=== PATIENT | female | born 1980 | race Caucasian/White ===

== ENCOUNTER 2016-08-06 08:52 | Emergency (ER) | payer OTHER ==
--- NOTE | 2016-08-06 12:22 | DIAGNOSTIC IMAGING REPORT ---
PROCEDURE: CT ABD/PELVIS WITH CONTRAST CLINICAL INDICATION: Periumbilical pain, initial encounter TECHNIQUE: 125 ml of Isovue 300 were injected intravenously and axial images were obtained of the entire abdomen and pelvis with sagittal and coronal reformations. COMPARISON: CT abdomen/pelvis 04/06/2010 FINDINGS: ABDOMEN: Lung base are clear. Heart size is normal. Cholecystectomy. Liver, pancreas, spleen, adrenal glands, kidneys and abdominal aorta are normal. Mild prominence of the second portion of the duodenum. There is mild wall thickening of the ascending, transverse and descending colon, which appears to be due to decompression rather than colitis . PELVIS: Prominence of the appendix (7 mm diameter) but there is no wall hyperemia or definite inflammatory changes. Uterus, adnexa and bladder are unremarkable. No free fluid. Mild degenerative changes of the spine. IMPRESSION: 1. Appendix size at the upper limits of normal no definite acute appendicitis. Correlate clinically 2. Mild colonic wall thickening which appears to be due to decompression rather than colitis 3. Cholecystectomy 4. Results discussed with Dr. Fried All CT scans at this facility use dose modulation, iterative reconstruction, and/or weight-based dosing when appropriate to reduce radiation dose to as low as reasonably achievable.
--- NOTE | 2016-08-06 13:31 | ED ORDER SUMMARY ---
..... Patient: SANDRA CARUSO OrderSheet [facility] VisitID: [id number] [place] [address] 36y, F Registration Date/Time: 08/06/2016 ORDER SHEET Weight: 61.2 kg (stated) Allergies: No Known Drug Allergy GENERAL ORDERS: CBC w Diff Urgent (10:08/06/2016 Radha Garcia) (Ack 10:28 [facility] ER Tech1) (10:55 Tana R.N.) CMP Urgent (10:08/06/2016 Radha Garcia) (Ack 10:28 [facility] ER Tech1) (10:55 Tana R.N.) UA-Culture if indicated Urgent (10:08/06/2016 Radha Garcia) (Ack 10:28 [employer] ER Tech1) (10:55 Tana R.N.) Serum Quantitative Urgent (10:08/06/2016 Radha Garcia) (Ack 10:28 [employer] ER Tech1) (10:55 Tana R.N.) Pulse oximeter (10:08/06/2016 Radha Garcia) (10:45 [facility]) CT Abd/Pel w Cont (No) (N/A) Urgent (10:28 08/06/2016 Radha Garcia) (Ack 10:39 [facility] ER Tech1) (11:29 [facility] ER Tech1) Pelvic Exam Setup (10:08/06/2016 Radha Garcai) (11:51 [facility] ER Tech1) GC/Chlamydia (Cervix) (mucus, blood) Urgent (10:08/06/2016 Radha Garcia) (Ack 10:39 [facility] ER Tech1) (13:02 [facility] Tech1) Wet Prep (Cervix) (SWAB) Urgent (13:02 08/06/2016 [facility] ER Tech1 per protocol) (13:03 [facility] ER Tech1) MEDICATION ORDERS: Phenergan IV 25 mg (HIGH ALERT MEDICATION, NOW) (10:26 08/06/2016 Radha Garcia) (10:44 [facility]) IV FLUIDS: IV NS : initial bolus 1000 mL (1000 mL/hr), then none - for X1 (NOW) (10:08/06/2016 Radha Garcia) (10:44 [facility]) Dilaudid IV 1 mg (once now. May repeat in 30 minutes for pain > 5/10) (10:08/06/2016 Radha Garcia) (10:44 [facility]) ORDER SHEET NOTES: [Electronically signed by Shiva Fried Dr. (15:08/06/2016)] [Electronically signed by Nany Ramirez (15:08/06/2016)] [Electronically signed by Nany Ramirez (15:08/06/2016)] [Electronically locked/signed by Nany Ramirez (15:08/06/2016)]
--- NOTE | 2016-08-06 13:31 | ED NURSING NOTES ---
Clinical Report - Nurses [facility] [address] [place] [address] 08/06/2016 8:55 Patient: SANDRA CARUSO TRIAGE Triage time 09:11. Acuity: LEVEL 3. Chief Complaint: NAUSEA and VOMITING. DAYNA COMA SCORE: [place] Coma Scale: 15- eyes open spontaneously (4); best verbal response- oriented x 4 (5); best motor response- obeys commands (6). --09:16 Hilary Menjivar R.N. 09:11 08/06/16. BP: 145/89. HR: 73. RR: 18. O2 saturation: 100%. Temp: 98 F (oral). Pain level now: 04/06. --09:16 Hilary Menjivar R.N. Triage time 1015. --15:05 Nany Ramirez. Weight: 61.2 kg stated. Height/Length: 65 inches Per Patient. BMI: 22.5. --09:15 Hilary Menjivar R.N. Medications Zofran Oral. --09:13 Hilary Menjivar R.N. KlonoPIN Oral. --09:14 Hilary Menjivar R.N. NexIUM Oral. --09:14 Hilary Menjivar R.N. Medication/allergy information source: the patient. --09:16 Hilary Menjivar R.N. Allergies No Known Drug Allergy. --09:14 Hilary Menjivar R.N. History Arrived by private vehicle. Historian: patient. Unaccompanied. Primary physician (Rosmery). Onset. (about 4 days). PAST MEDICAL HX: Last normal menstrual period now. SOCIAL HX: Smoker- current status unknown (no). No alcohol use or drug use. FALL RISK ASSESSMENT: Fall risk assessment completed. No fall risk identified. FUNCTIONAL ASSESSMENT: Functional assessment: no impairments noted. LEARNING NEEDS ASSESSMENT: The learning needs assessment revealed no barriers. --09:16 Hilary Menjivar R.N. Historian: patient. Patient did not arrive by private vehicle. --15:05 Nany Ramirez. PROBLEMS: Vomiting. . Abdominal Pain. Hypertension. LNMP - Last Normal Menstrual Period. Gastroenteritis. Anxiety Reaction. --09:14 Hilary Menjivar R.N. Assessment GENERAL / NEURO / PSYCH: The patient is awake and alert, is oriented and cooperative and appears uncomfortable. She has poor eye contact. RESPIRATORY: Respirations not labored. SKIN: Skin is warm and dry. --09:16 Hilary Menjivar R.N. Interventions ID band on patient. To treatment room. --09:16 Hilary Menjivar R.N. PHYSICAL ASSESSMENT 09:48 08/06/16. Ambulatory to room. Patient gowned. GENERAL / NEURO / PSYCH: Alert. Oriented X 4. Appears in no acute distress. RESPIRATORY: Respirations not labored. SKIN: Skin is warm and dry. --09:48 Hilary Menjivar R.N. NURSING PROGRESS NOTES 09:48 08/06/16. Patient gowned. Head of bed elevated. Reassurance given. Call light placed in reach. Side rails up x 1. Bed placed in lowest position. Brakes of bed on. --09:48 Hilary Menjivar R.N. 09:52 08/06/16. Patient ready for evaluation- chart flagged. --09:52 Hilary Menjivar R.N. 09:52 08/06/16. :patient confirmed. Clean catch urine collected; sample sent to lab. Specimen labeled in the presence of the patient. --09:52 Hilary Menjivar R.N. 09:56 08/06/2016 Site #1 started via IV in the right antecubital space with an 20g angiocath, with aseptic technique and good blood return; one attempt. Blood drawn: rainbow set. Labeled in the presence of the patient and sent to the lab. Saline lock flushed with 10 mL saline. --10:06 Hilary Menjivar R.N. ( Went in room to see if patient needed to be triaged pt when asks std "No one has been in here" when I asked if someone was already in here to take vitals and talk to her. Pt sts to me she called her PCP and was given zofran and Phenergan supp which she admits to not taking routinely, moaning in pain on side, ta;lks easily and without any concern). --10:22 Nany Ramirez :44 08/06/2016 Started bag #1 1000 mL IV Fluids IV NS (Saline); bolus of 1000 mL wide open via site #1. Allergies verified and confirmed 5 rights. IV patency established. IV site checked: no pain, redness, or swelling. IV flushed thoroughly pre- and post-medication administration. --10:44 Nany Ramirez 08/06/2016 Dilaudid (HYDROmorphone HCl PF) IVP 1 mg given. via site #1. Allergies verified, confirmed 5 rights and sedative warning given to the patient. IV patency established. IV site checked: no pain, redness, or swelling. IV flushed thoroughly pre- and post-medication administration. IVP given by RN. --10: Nany Ramirez 08/06/2016 PHENERGAN (Promethazine HCl) IVP 25 mg given. via site #1. Allergies verified and confirmed 5 rights. IV patency established. IV site checked: no pain, redness, or swelling. IV flushed thoroughly pre- and post-medication administration. IVP given by RN. --:44 Nany Ramirez Reassessment after medication administered. She is calm, resting quietly and sleeping and has had no adverse reaction. Overall patient status is improved- she states feels better. Patient informed about reason for wait. Patient waiting for CT results. --12:13 Nany Ramirez 12:13 08/06/16. BP: 120/60. HR: 62. RR: 16. O2 saturation: 98%. Pain level now 09/06. --12:13 Nany Ramirez PELVIC EXAM: Pelvic exam performed by ED physician. Assisted by one nurse. Preparation: pelvic tray and culture medium; patient placed in lithotomy position. Procedure: speculum exam. Scant amount of bloody vaginal discharge noted. Specimens collected and sent to lab: GC, chlamydia and wet prep. Status post-procedure: she was stable and no complications were noted. Total time of assist / procedure: 15 minutes. --12:35 Nany Ramirez. DISPOSITION / DISCHARGE 15:02 08/06/16. BP: 117/64. HR: 77. RR: 16. O2 saturation: 98%. Pain level now 09/06. --15:03 Nany Ramirez Departure time: 1500. Condition at departure: improved and stable. No learning barriers present. Discharge instructions provided and reviewed with the patient. Patient verbalized understanding. Written instructions provided in Sammarinese. The patient was discharged by the physician. She was discharged home and accompanied by parent. She left the Emergency Department ambulatory and via private vehicle. Parent driving. --15:03 Nany Ramirez 15:03 08/06/2016 IV Fluids IV NS Discontinued: bag #1 completed upon discharge. Total amount infused: 1000 mL. --15:03 Nany Ramirez 15:04 08/06/2016 Site #1 removed upon discharge. Pressure dressing applied. --15:04 Nany Ramirez. Locked/Released at 08/06/2016 15:05 by Nany Ramirez,
--- NOTE | 2016-08-06 13:31 | ED ORDER SUMMARY ---
..... Patient: SANDRA CARUSO OrderSheet [facility] VisitID: [id number] [place] [address] 36y, F Registration Date/Time: 08/06/2016 ORDER SHEET Weight: 61.2 kg (stated) Allergies: No Known Drug Allergy GENERAL ORDERS: CBC w Diff Urgent (10:08/06/2016 Radha Garcia) (Ack 10:28 [facility] ER Tech1) (10:55 Tana R.N.) CMP Urgent (10:08/06/2016 Radha Garcia) (Ack 10:28 [facility] ER Tech1) (10:55 Tana R.N.) UA-Culture if indicated Urgent (10:08/06/2016 Radha Garcia) (Ack 10:28 [employer] ER Tech1) (10:55 Tana R.N.) Serum Quantitative Urgent (10:08/06/2016 Radha Garcia) (Ack 10:28 [employer] ER Tech1) (10:55 Tana R.N.) Pulse oximeter (10:08/06/2016 Radha Garcia) (10:45 [facility]) CT Abd/Pel w Cont (No) (N/A) Urgent (10:28 08/06/2016 Radha Garcia) (Ack 10:39 [facility] ER Tech1) (11:29 [facility] ER Tech1) Pelvic Exam Setup (10:08/06/2016 Radha Garcia) (11:51 [facility] ER Tech1) GC/Chlamydia (Cervix) (mucus, blood) Urgent (10:08/06/2016 Radha Garcia) (Ack 10:39 [facility] ER Tech1) (13:02 [facility] ER Tech1) Wet Prep (Cervix) (SWAB) Urgent (13:02 08/06/2016 [facility] ER Tech1 per protocol) (13:03 [facility] ER Tech1) MEDICATION ORDERS: Phenergan IV 25 mg (HIGH ALERT MEDICATION, NOW) (10:26 08/06/2016 Radha Garcia) (10:44 [facility]) IV FLUIDS: IV NS : initial bolus 1000 mL (1000 mL/hr), then none - for X1 (NOW) (10:08/06/2016 Radha Garcia) (10:44 [facility]) Dilaudid IV 1 mg (once now. May repeat in 30 minutes for pain > 5/10) (10:08/06/2016 Radha Garcia) (10:44 [facility]) ORDER SHEET NOTES: [Electronically signed by Shiva Fried Dr. (15:08/06/2016)] [Electronically signed by Nany Ramirez (15:08/06/2016)] [Electronically signed by Nany Ramirez (15:08/06/2016)] [Electronically locked/signed by Nany Ramirez (15:08/06/2016)]
--- NOTE | 2016-08-06 13:31 | ED CLINICAL REPORT ---
Clinical Report - Physicians/Mid Levels [facility] [address] [place] [address] 08/06/2016 8:55 Patient: SANDRA CARUSO Time Seen: 1019. Arrived- By private vehicle. Historian- patient. HISTORY OF PRESENT ILLNESS Chief Complaint: ABDOMINAL PAIN and generalized. At its maximum, severity described as severe. When seen in the E.D., severity described as severe. Modifying factors- (worsened by stress. better with rest). This started 4 - 5 days ago and is still present (worsening). It was gradual in onset and has been waxing/waning but is not gone now. It is described as aching. No radiation. The patient has had nausea, loss of appetite, vomiting and diarrhea. No additional abdominal pain. No recent travel. Similar symptoms previously: Many times. ( Has been following up with GI.). Recent medical care: Not recently seen/assessed. REVIEW OF SYSTEMS No black stools, hematemesis, bloody stools, fever or chest pain. No difficulty breathing or chills. All systems otherwise negative, except as recorded above. PAST HISTORY See nurses notes. Medications: NexIUM Oral. KlonoPIN Oral. Zofran Oral. Allergies: No Known Drug Allergy. SOCIAL HISTORY Former smoker. Occasional alcohol use. No drug use. No recent travel. Is a local resident. FAMILY HISTORY (dad has hx of bowel problems (not formally diagnosed) states it is GERD). ADDITIONAL NOTES The nursing notes have been reviewed. PHYSICAL EXAM Vital Signs: 08/06/2016 09:11 BP: 145/89. HR: 73. RR: 18. O2 saturation: 100%. Temp: 98 F. Pain level now: 9/10. Blood pressure normal. Oxygen saturation normal. Appearance: Alert. Oriented X3. No acute distress. Eyes: Pupils equal, round and reactive to light. Eyes normal inspection. ENT: Ears normal. Nose normal. Pharynx normal. Neck: Normal inspection. Neck supple. CVS: Normal heart rate and rhythm. Heart sounds normal. Pulses normal. Respiratory: No respiratory distress. Breath sounds normal. Chest nontender. Abdomen: Soft. Mild tenderness in the periumbilical area (has no tenderness at McBurney's point). No guarding, rebound tenderness or Jones's, obturator or psoas sign present. No organomegaly. No mass. Back: Normal inspection. : Normal external exam. Speculum exam normal. Bimanual exam normal. (Small amount of dark red blood in the vaginal vault. No cervical masses or lesions. No CMT. No adnexal masses. Cervical os is closed. Exam performed with Nany HILLS pattern changer and repairer at all times.). Skin: Skin warm and dry. Normal skin color. No rash. Normal skin turgor. Extremities: Extremities exhibit normal ROM. No lower extremity edema. Neuro: Oriented X 3. No motor deficit. No sensory deficit. LABS, X-RAYS, AND EKG Abdominal CT: PROCEDURE: CT ABD/PELVIS WITH CONTRAST CLINICAL INDICATION: Periumbilical pain, initial encounter TECHNIQUE: 125 ml of Isovue 300 were injected intravenously and axial images were obtained of the entire abdomen and pelvis with sagittal and coronal reformations. COMPARISON: CT abdomen/pelvis 04/06/2010 FINDINGS: ABDOMEN: Lung base are clear. Heart size is normal. Cholecystectomy. Liver, pancreas, spleen, adrenal glands, kidneys and abdominal aorta are normal. Mild prominence of the second portion of the duodenum. There is mild wall thickening of the ascending, transverse and descending colon, which appears to be due to decompression rather than colitis . PELVIS: Prominence of the appendix (7 mm diameter) but there is no wall hyperemia or definite inflammatory changes. Uterus, adnexa and bladder are unremarkable. No free fluid. Mild degenerative changes of the spine. IMPRESSION: 1. Appendix size at the upper limits of normal no definite acute appendicitis. Correlate clinically 2. Mild colonic wall thickening which appears to be due to decompression rather than colitis 3. Cholecystectomy. Study type: abdomen and pelvis. Abdominal CT performed with IV contrast. The study was independently viewed by me and interpreted by the radiologist. The study was discussed with the radiologist (via phone and pacs). Laboratory Tests: UA-Culture if indicated: (NOE: 08/06/2016 10:00) ( MsgRcvd 08/06/2016 10:48) Final results Test Result Flag Units (Reference) URINE COLOR YELLOW URINE APPEARANCE CLEAR URINE GLUCOSE NEGATIVE (NEGATIVE) URINE BILIRUBIN NEGATIVE (NEGATIVE) URINE KETONE NEGATIVE (NEGATIVE) URINE SPECIFIC GRAVITY 1.025 (1.010-1.030) URINE PH 5.5 (5.0-8.0) URINE PROTEIN NEGATIVE (NEGATIVE) URINE UROBILINOGEN 0.2 EU/dL (0.2-1.0) URINE NITRITE NEGATIVE (NEGATIVE) URINE BLOOD 2+ (NEGATIVE) URINE LEUK ESTERASE TRACE (NEGATIVE) URINE RBC 0-1 rbc/hpf (0-1) URINE WBC 3-5 wbc/hpf (0-1) URINE EPITHELIAL CELLS 3-5 EPI/hpf (0-5) URINE BACTERIA NONE SEEN (NONE SEEN) URINE COMMENT CULT NOT INDICATED RARE HYALINE CASTURINE CULTURES ARE SET-UP BASED ON THE FOLLOWING CRITERIA:POSITIVE NITRITEPOSITIVE LEUKOCYTE ESTERASEGREATER THAN 10 WHITE BLOOD CELLSMODERATE (2+) OR GREATER BACTERIA CBC w Diff: (NOE: 08/06/2016 10:00) ( [facility] 08/06/2016 10:47) Final results Test Result Flag Units (Reference) WHITE BLOOD COUNT 9.4 K/uL (4.5-11.5) RED BLOOD COUNT 4.33 M/uL (4.00-5.20) HEMOGLOBIN 13.0 gm/dL (12.0-16.0) HEMATOCRIT 39.0 % (36.0-46.0) MEAN CELL VOLUME 90 fL (80-100) MEAN CORPUSCULAR HGB 30 pg (26-34) MEAN CORPUSCULAR HGB CONC 33 g/dL (31-37) RED CELL DISTRIBUTION WIDTH 12.6 % (11.6-14.8) PLATELET COUNT 280 K/uL (150-400) NEUTROPHIL % 81.8 H % (50-75) LYMPH % 14.4 L % (25-40) MONO % 3.1 % (3-14) EOSINOPHIL % 0.5 % (0-4) BASOPHIL % 0.2 % (0-2) CMP: (NOE: 08/06/2016 10:00) ( [facility] 08/06/2016 10:57) Final results Test Result Flag Units (Reference) GLUCOSE 106 mg/dL (70-110) BUN 17 mg/dL (7-18) CREATININE 0.8 mg/dL (0.6-1.3) Estimated GFR >60 mL/min Estimated GFR- >60 mL/min Note: Persistent reduction over 3 months in eGFR<60 mL/min/1.73 m2 defines CKD. Patients with eGFR values>=60 mL/min/1.73 m2 may also have CKD if evidence ofpersistent proteinuria. Additional information may be foundat www.[email or web address].org. SODIUM 143 mmol/L (136-145) POTASSIUM 3.3 L mmol/L (3.5-5.1) CHLORIDE 105 mmol/L (98-107) CARBON DIOXIDE 29 mmol/L (21-32) CALCIUM 8.8 mg/dL (8.5-10.1) TOTAL PROTEIN 7.7 g/dL (6.4-8.2) ALBUMIN 4.3 g/dL (3.3-5.0) BILIRUBIN, TOTAL 0.6 mg/dL (0.0-1.0) ALKALINE PHOSPHATASE 61 U/L (46-116) AST (SGOT) 15 U/L (15-37) ALT (SGPT) 25 U/L (12-78) BETA HCG, QUANTITATIVE <1 mIU/mL REFERENCE RANGE:Adult Males: <2 mIU/mLNon- Females: <6 mIU/mL Females:Approximate Approximate hCGGestational Age Range (mIU/mL) 0-1 week 0-501-2 weeks 40-3002-3 weeks 100-57536-2 weeks 500-30724-2 months 5,000-200,0002-3 months 10,000-100,0002nd trimester 3,000-50,0003rd trimester 1,000-50,000 Wet Prep: (NOE: 08/06/2016 12:35) ( MsgRcvd 08/06/2016 13:24) Final results SPECIMEN DESCRIPTION: SWAB Test Result Flag Units (Reference) WET MOUNT CLUE CELLS:: NONE EPITHELIAL CELLS: MODERATE -- SOURCE?: CERVIX WHITE BLOOD CELLS: FEW TRICHOMONAS:: NONE -- YEAST:: NONE . PROGRESS AND PROCEDURES Course of Care: the patient is a pleasant 36-year-old female presenting for evaluation of abdominal pain. Pain isn't similar to prior episodes of abdominal pain. Asked patient what normally helps with the pain when he gets like this. Patient reports a Dilaudid helps. Patient otherwise reports no other concerns at this time. Had discussion with patient in regards to itching with urination. Reports that this has resolved after getting medications for use infection by her primary care doctor. I discussed with patient in regards to sexual transmitted infection and her concerns about these. Patient is agreeable to pelvic exam and recheck for yeast infection as well as gonorrhea and chlamydia. Expanded patient that the gonorrhea and chlamydia test takes several days to return in summary will contact her at the end of the week or early next week for results of the test. Patient is otherwise nontoxic in appearance and vital signs are normal. Patient is agreeable to the treatment and plan. Upon reevaluation, patient has significantly improved symptoms at this time. Pain has greatly reduced in severity. Patient continues to be nontoxic in appearance. Currently awaiting CT scan results. Pelvic exam performed with Nany HILLS pattern changer and repairer at all times. No acute other maladies noted on pelvic exam. CT scan results had returned. No acute findings. Appendix is large however there is no signs of appendicitis or inflammation. I discussed with patient return precautions for acute appendicitis. Patient presents that she does not need pain medications to return home with. Patient states that when she gets pain medication here in the emergency department it usually resolves. Had discussion with patient in regards to hospital policy in regards to having 3 visits within any one year. And in prescribe controlled substances. Patient is agreeable to the treatment and plan and expresses understanding of hospital policy. Do not feel patient needs to be admitted to the hospital require further emergency department Evaluation. Patient continues to be nontoxic. Repeat abdominal exam is benign. Discussed with patient workup, diagnosis, home care, follow-up, and return precautions. All questions answered. The patient expressed understanding of these instructions and was agreeable to them. Disposition: Discharged. Condition: good. CLINICAL IMPRESSION Acute periumbilical abdominal pain. Vomiting with nausea (acute). Hypokalemia (acute mild). INSTRUCTIONS Warnings: GENERAL WARNINGS: Return or contact your physician immediately if your condition worsens or changes unexpectedly, if not improving as expected, or if other problems arise. SPECIFICALLY, return if you develop pain, fever, vomiting, the inability to keep fluids down, blood in vomitus, blood in diarrhea, fainting or lightheadedness. Your Current Medications: CONTINUE TAKING THE FOLLOWING MEDICATIONS: KlonoPIN Oral. NexIUM Oral. Zofran Oral. OTC Medications: Tylenol (available over the counter): take according to label instructions. Motrin (available over the counter): take according to label instructions. Follow-up: Return to the emergency department as needed. Follow up with your doctor in three. Reason for referral: recheck today's concerns. Summary of care provided to patient via paper. Screening today revealed the patient's blood pressure to be in the normal range. The patient should follow up with a primary care provider for blood pressure management. Understanding of the discharge instructions verbalized by patient. (Electronically signed by Shiva Fried Dr. 08/06/2016 15:04)
--- NOTE | 2016-08-06 15:06 | ED MED RECONCILIATION SUMMARY ---
Patient: SANDRA CARUSO Medication Reconciliation Report [facility] VisitID: [id number] [address] [place] [address] 36y, F Registration Date/Time: 08/06/2016 Weight: 61.2 kg Height/Length: 65 in. BMI: 22.5 ALLERGIES: No Known Drug Allergy The patient's Home Medications are listed below: CONTINUE TAKING THE FOLLOWING MEDICATIONS: KlonoPIN Oral NexIUM Oral Zofran Oral The source(s) of the original Home Medication information: patient The following Medications were given to the patient in the Emergency Department: IV NS IV Fluids bolus 1000 mL wide open, administered: 08/06/2016 10:44:00 AM Dilaudid [IVP] IVP 1 mg, administered: 08/06/2016 10:44:00 AM PHENERGAN [IVP] IVP 25 mg, administered: 08/06/2016 10:44:00 AM The following Medications were prescribed to the patient: Tylenol (available over the counter): take according to label instructions. -- Shiva Fried Dr. Motrin (available over the counter): take according to label instructions. -- Shiva Fried Dr.
--- NOTE | 2016-08-06 15:06 | ED DISCHARGE INSTRUCTIONS ---
Patient: SANDRA CARUSO General Instructions [facility] VisitID: [id number] [place] [address] 36y, F Registration Date/Time: 08/06/2016 Acute periumbilical abdominal pain. Vomiting with nausea (acute). Hypokalemia (acute mild). INSTRUCTIONS Warnings: GENERAL WARNINGS: Return or contact your physician immediately if your condition worsens or changes unexpectedly, if not improving as expected, or if other problems arise. SPECIFICALLY, return if you develop pain, fever, vomiting, the inability to keep fluids down, blood in vomitus, blood in diarrhea, fainting or lightheadedness. Your Current Medications: CONTINUE TAKING THE FOLLOWING MEDICATIONS: KlonoPIN Oral. NexIUM Oral. Zofran Oral. OTC Medications: Tylenol (available over the counter): take according to label instructions. Motrin (available over the counter): take according to label instructions. Follow-up: Return to the emergency department as needed. Follow up with your doctor in three. Reason for referral: recheck today's concerns. Summary of care provided to patient via paper. Screening today revealed the patient's blood pressure to be in the normal range. The patient should follow up with a primary care provider for blood pressure management. Understanding of the discharge instructions verbalized by patient. ADDITIONAL INFORMATION Abdominal Pain, Unknown Cause (Female) The exact cause of your abdominal (stomach) pain is not certain. This does not mean that this is something to worry about, or the right tests were not done. Everyone likes to know the exact cause of the problem, but sometimes with abdominal pain, there is no clear-cut cause, and this could be a good thing. The good news is that your symptoms can be treated, and you will feel better. Your condition does not seem serious now; however, sometimes the signs of a serious problem may take more time to appear. For this reason,it is important for you to watch for any new symptoms, problems,or worsening of your condition. Over the next few days, the abdominal pain may come and go, or be continuous. Other common symptoms can include nausea and vomiting. Sometimes it can be difficult to tell if you feel nauseous, you may just feel bad and not associate that feeling with nausea. Constipation, diarrhea, and a fever may go along with the pain. The pain may continue even if treated correctly over the following days. Depending on how things go, sometimes the cause can become clear and may require further or different treatment. Additional evaluations, medications, or tests may be needed. Home care Your health care provider may prescribe medications for pain, symptoms, or an infection. Follow the health care provider's instructions for taking these medications. General care Rest until your next exam. No strenuous activities. Try to find positions that ease discomfort. A small pillow placed on the abdomen may help relieve pain. Something warm on your abdomen (such as a heating pad) may help, but be careful not to burn yourself. Diet Do not force yourself to eat, especially if having cramps, vomiting, or diarrhea. Water is important so you do not get dehydrated. Soup may also be good. Sports drinks may also help, especially if they are not too acidic. Make sure you don't drink sugary drinks as this can make things worse. Take liquids in small amounts. Do not guzzle them. Caffeine sometimes makes the pain and cramping worse. Avoid dairy products if you have vomiting or diarrhea. Don't eat large amounts at a time. Wait a few minutes between bites. Eat a diet low in fiber (called a low-residue diet). Foods allowed include refined breads, white rice, fruit and vegetable juices without pulp, tender meats. These foods will pass more easily through the intestine. Avoid whole-grain foods, whole fruits and vegetables, meats, seeds and nuts, fried or fatty foods, dairy, alcohol and spicy foods until your symptoms go away. Follow-up care Follow up with your health care provider as instructed, or if your pain does not begin to improve in the next 24 hours. When to seek medical care Seek prompt medical care if any of the following occur: Pain gets worse or moves to the right lower abdomen New or worsening vomiting or diarrhea Swelling of the abdomen Unable to pass stool for more than three days Fever of 100.4F (38C) or higher, or as directed by your healthcare provider. Blood in vomit or bowel movements (dark red or black color) Jaundice (yellow color of eyes and skin) Weakness, dizziness Chest, arm, back, neck or jaw pain Unexpected vaginal bleeding or missed period Call 911 Call emergency services if any of the following occur: Trouble breathing Confusion Fainting or loss of consciousness Rapid heart rate Seizure Abdominal Pain,Possible Appendicitis [Repeat Exam, Female] Based on your visit today, the exact cause of your abdominal (stomach) pain is not certain. However, you do have some of the early signs of APPENDICITIS. Early in an appendix infection the symptoms can be similar to a simple "stomach ache" or "stomach flu". Therefore, the diagnosis can be hard to make. Since an appendix infection is a serious condition, it is important to know if this is the cause of your symptoms. WAITING for more time to pass and repeating the exam is the best way to find out whether you have appendicitis. Within the next 12-24 hours the cause of your stomach pain should become clear. It is important for you to watch for any new symptoms or worsening of your condition. (See below). Home Care: Rest until your next exam. No strenuous activities. Eat a diet low in fiber (called a low-residue diet). Foods allowed include refined breads, white rice, fruit and vegetable juices without pulp, tender meats. These foods will pass more easily through the intestine. Avoid whole-grain foods, whole fruits and vegetables, meats, seeds and nuts, fried or fatty foods, dairy, alcohol and spicy foods until your symptoms go away. In some cases, you may be asked not to eat or drink anything until you are re-examined. Return for another exam exactly as directed. Follow Up with your doctor or this facility as directed. Get Prompt Medical Attention if any of the following occur: Pain gets worse or moves to the right lower abdomen New or worsening vomiting or diarrhea Swelling of the abdomen Unable to pass stool for more than three days Fever of 100.4F (38C) or higher, or as directed by your healthcare provider Blood in vomit or bowel movements (dark red or black color) Weakness, dizziness or fainting Unexpected vaginal bleeding Hypokalemia Hypokalemia means a low level of potassium in the blood. This most often occurs in patients who take diuretics (water pills). It can also occur due to severe vomiting or diarrhea. A mild case usually causes no symptoms. It is only found with blood testing. More severe potassium loss causes generalized weakness, muscle or abdominal cramping, heart palpitations (rapid or irregular heartbeats) and low blood pressure. Home Care: 1) Take any potassium supplements prescribed. 2) Eat foods rich in potassium. The highest amount is found in artichoke, baked potatoes, spinach, cantaloupe, honeydew melon, cod, halibut, salmon, and scallops. White, red, or quintanilla beans are also very good sources. A modest amount is found in orange juice, bananas, carrots, and tomato juice. 3) Certain types of diuretics (water pills), such as Lasix (furosemide), require that you take potassium supplements for as long as you take the diuretic pills. If you are taking a diuretic, discuss the need for potassium supplements with your doctor. Follow Up with your doctor for a repeat blood test within the next week or as advised by our staff. Get Prompt Medical Attention if any of the following occur: -- Increased weakness -- Feeling dizzy -- Irregular heartbeat, extra beats or very fast heart rate -- Fainting spell You have been given the following additional information: Abdominal Pain, Unknown Cause, (Female) Abdominal Pain, Possible Appendicitis (Female) Hypokalemia (Electronically signed by Shiva Fried Dr. 08/06/2016 15:04)
--- NOTE | 2016-08-06 15:06 | ED MAR SUMMARY ---
..... Medication Administration Record [facility] [address] [place] [address] Patient: SANDRA CARUSO Visit ID: [id number] 36y, F Weight: 61.2 kg Height/Length: 65 in BMI: 22.5 ALLERGIES: No Known Drug Allergy Start 10:44 08/06/2016 Nany Ramirez,, Stop 15:03 08/06/2016 Nany Ramirez, Medication Administered: IV NS (SALINE), Dose: IV Fluids, Bolus: 1000 mL wide open, Dispensed: 1000 mL bag, Site: #1 right AC. Medication Ordered: IV NS : initial bolus 1000 mL (1000 mL/hr), then none - for X1 (NOW). Given 10:08/06/2016 Nany Ramirez, Medication Administered: DILAUDID [IVP] (HYDROMORPHONE HCL PF), Dose: 1 mg IVP, Site: #1 right AC. Medication Ordered: Dilaudid IV 1 mg (once now. May repeat in 30 minutes for pain > 5/10). Given 10:08/06/2016 Nany Ramirez, Medication Administered: PHENERGAN [IVP] (PROMETHAZINE HCL), Dose: 25 mg IVP, Site: #1 right AC. Medication Ordered: Phenergan IV 25 mg (HIGH ALERT MEDICATION, NOW).
--- NOTE | 2016-08-06 15:06 | ED MAR SUMMARY ---
..... Medication Administration Record [facility] [address] [place] [address] Patient: SANDRA CARUSO Visit ID: [id number] 36y, F Weight: 61.2 kg Height/Length: 65 in BMI: 22.5 ALLERGIES: No Known Drug Allergy Start 10:44 08/06/2016 Nany Ramirez,, Stop 15:03 08/06/2016 Nany Ramirez, Medication Administered: IV NS (SALINE), Dose: IV Fluids, Bolus: 1000 mL wide open, Dispensed: 1000 mL bag, Site: #1 right AC. Medication Ordered: IV NS : initial bolus 1000 mL (1000 mL/hr), then none - for X1 (NOW). Given 10:08/06/2016 Nany Ramirez, Medication Administered: DILAUDID [IVP] (HYDROMORPHONE HCL PF), Dose: 1 mg IVP, Site: #1 right AC. Medication Ordered: Dilaudid IV 1 mg (once now. May repeat in 30 minutes for pain > 5/10). Given 10:08/06/2016 Nany Ramirez, Medication Administered: PHENERGAN [IVP] (PROMETHAZINE HCL), Dose: 25 mg IVP, Site: #1 right AC. Medication Ordered: Phenergan IV 25 mg (HIGH ALERT MEDICATION, NOW).
--- NOTE | 2016-08-06 15:06 | ED MED RECONCILIATION SUMMARY ---
Patient: SANDRA CARUSO Medication Reconciliation Report [facility] VisitID: [id number] [address] [place] [address] 36y, F Registration Date/Time: 08/06/2016 Weight: 61.2 kg Height/Length: 65 in. BMI: 22.5 ALLERGIES: No Known Drug Allergy The patient's Home Medications are listed below: CONTINUE TAKING THE FOLLOWING MEDICATIONS: KlonoPIN Oral NexIUM Oral Zofran Oral The source(s) of the original Home Medication information: patient The following Medications were given to the patient in the Emergency Department: IV NS IV Fluids bolus 1000 mL wide open, administered: 08/06/2016 10:44:00 AM Dilaudid [IVP] IVP 1 mg, administered: 08/06/2016 10:44:00 AM PHENERGAN [IVP] IVP 25 mg, administered: 08/06/2016 10:44:00 AM The following Medications were prescribed to the patient: Tylenol (available over the counter): take according to label instructions. -- Shiva Fried Dr. Motrin (available over the counter): take according to label instructions. -- Shiva Fried Dr.
== END 2016-08-06 15:00 | disposition home or self-care (01) ==
LOC: ED SRH 08:52
DX: E87.6 Hypokalemia (principal); R10.33 Periumbilical pain; R11.2 Nausea with vomiting, unspecified; I10 Essential (primary) hypertension; Z79.899 Other long term (current) drug therapy; Z87.891 Personal history of nicotine dependence
CPT/HCPCS: 90004; 90100; 90195; 90197; 90469; 91227; 91228; 95059

== ENCOUNTER 2016-09-02 12:09 | Emergency (ER) | payer OTHER ==
--- NOTE | 2016-09-02 14:13 | ED CLINICAL REPORT ---
Clinical Report - Physicians/Mid Levels [facility] [address] [place] [address] 09/02/2016 12:09 Patient: SANDRA CARUSO Time Seen: 12:52 Sep 02 2016. Arrived- By private vehicle. Historian- patient. HISTORY OF PRESENT ILLNESS Chief Complaint: abd pain/ n/v/ anxiety. (Patient reports recurrent spells of abdominal pain, nausea sensation, she believes it is due to her cyclical vomiting syndrome, as well as exacerbated by her anxiety, and sensation of reflux, has seen multiple providers for this including her psychiatrist, primary care provider, as well as gastroenterology.). REVIEW OF SYSTEMS No fever, sore throat, sinus drainage, chills or difficulty with urination. No headache. She has had abdominal pain, nausea and vomiting. All systems otherwise negative, except as recorded above. PAST HISTORY Problems: Hypokalemia. Vomiting. . Abdominal Pain. UTI - Urinary Tract Infection. Hypertension. LNMP - Last Normal Menstrual Period. Gastroenteritis. Anxiety Reaction. Additional Surgeries: Cholecystectomy. Medications: Promethazine HCl Oral. Wellbutrin Oral. Zantac Oral. Omeprazole Oral. Benadryl Oral 25 mg, as needed. Amitriptyline HCl Oral 25 mg 1/2 tab, daily. KlonoPIN Oral. NexIUM Oral. Zofran Oral 4 mg, PRN. Allergies: No Known Drug Allergy. SOCIAL HISTORY Former smoker. No alcohol use or drug use. ADDITIONAL NOTES The nursing notes have been reviewed. PHYSICAL EXAM Vital Signs: 09/02/2016 12:17 BP: 159/120. HR: 104. RR: 22. O2 saturation: 100%. Temp: 98.3 F. Pain level now: 7/10. Appearance: Alert. Eyes: Eyes normal inspection. Neck: Normal inspection. Neck supple. CVS: Normal heart rate and rhythm. Heart sounds normal. Rhythm normal. No extra heart sounds. Respiratory: No respiratory distress. Breath sounds normal. No accessory muscle use. Abdomen: Mild tenderness in the periumbilical area. No guarding or Jones's sign present. No organomegaly. No mass. Skin: Skin warm. LABS, X-RAYS, AND EKG Laboratory Tests: UA-Culture if indicated: (NOE: 09/02/2016 12:40) ( [facility] 09/02/2016 13:15) Final results Test Result Flag Units (Reference) URINE COLOR YELLOW URINE APPEARANCE HAZY URINE GLUCOSE NEGATIVE (NEGATIVE) URINE BILIRUBIN NEGATIVE (NEGATIVE) URINE KETONE 2+ (NEGATIVE) URINE SPECIFIC GRAVITY 1.025 (1.010-1.030) URINE PH 6.0 (5.0-8.0) URINE PROTEIN NEGATIVE (NEGATIVE) URINE UROBILINOGEN 0.2 EU/dL (0.2-1.0) URINE NITRITE NEGATIVE (NEGATIVE) URINE BLOOD 3+ (NEGATIVE) URINE LEUK ESTERASE NEGATIVE (NEGATIVE) URINE RBC 3-5 rbc/hpf (0-1) URINE WBC 0-1 wbc/hpf (0-1) URINE EPITHELIAL CELLS 5-10 EPI/hpf (0-5) URINE BACTERIA FEW (1+) (NONE SEEN) URINE COMMENT CULT NOT INDICATED RARE TRANSITIONAL EPITHELIAL CELLSURINE CULTURES ARE SET-UP BASED ON THE FOLLOWING CRITERIA:POSITIVE NITRITEPOSITIVE LEUKOCYTE ESTERASEGREATER THAN 10 WHITE BLOOD CELLSMODERATE (2+) OR GREATER BACTERIA Urine: (NOE: 09/02/2016 12:40) ( [facility] 09/02/2016 12:56) Final results Test Result Flag Units (Reference) URINE NEGATIVE CBC w Diff: (NOE: 09/02/2016 13:22) ( [facility] 09/02/2016 13:42) Final results Test Result Flag Units (Reference) WHITE BLOOD COUNT 7.6 K/uL (4.5-11.5) RED BLOOD COUNT 4.54 M/uL (4.00-5.20) HEMOGLOBIN 13.5 gm/dL (12.0-16.0) HEMATOCRIT 39.6 % (36.0-46.0) MEAN CELL VOLUME 87 fL (80-100) MEAN CORPUSCULAR HGB 30 pg (26-34) MEAN CORPUSCULAR HGB CONC 34 g/dL (31-37) RED CELL DISTRIBUTION WIDTH 12.5 % (11.6-14.8) PLATELET COUNT 298 K/uL (150-400) NEUTROPHIL % 68.3 % (50-75) LYMPH % 25.3 % (25-40) MONO % 5.0 % (3-14) EOSINOPHIL % 0.4 % (0-4) BASOPHIL % 1.0 % (0-2) CMP: (NOE: 09/02/2016 13:22) ( MsgRcvd 09/02/2016 13:58) Final results Test Result Flag Units (Reference) GLUCOSE 88 mg/dL (70-110) BUN 16 mg/dL (7-18) CREATININE 0.8 mg/dL (0.6-1.3) Estimated GFR >60 mL/min Estimated GFR- >60 mL/min Note: Persistent reduction over 3 months in eGFR<60 mL/min/1.73 m2 defines CKD. Patients with eGFR values>=60 mL/min/1.73 m2 may also have CKD if evidence ofpersistent proteinuria. Additional information may be foundat www.[email or web address].org. SODIUM 141 mmol/L (136-145) POTASSIUM 3.2 L mmol/L (3.5-5.1) CHLORIDE 105 mmol/L (98-107) CARBON DIOXIDE 21 mmol/L (21-32) CALCIUM 9.2 mg/dL (8.5-10.1) TOTAL PROTEIN 7.6 g/dL (6.4-8.2) ALBUMIN 4.3 g/dL (3.3-5.0) BILIRUBIN, TOTAL 0.9 mg/dL (0.0-1.0) ALKALINE PHOSPHATASE 51 U/L (46-116) AST (SGOT) 14 L U/L (15-37) ALT (SGPT) 19 U/L (12-78) . PROGRESS AND PROCEDURES Course of Care: patient here in the ER, with no emesis. Patient very stable. This is an ongoing for a long time, Workup included CT abdomen one month previously, with coronary for abdominal pain, due to appendicitis, patient with no rebound or guarding at this time, this is most suspicious, given such as of one month from incident. Patient stable. 09/02/2016 14:28 BP: 127/75. HR: 86. RR: 18. O2 saturation: 99%. Patient is stable. Physical exam findings are improved. Symptoms better. Patient/family counseled. Differential Diagnosis: I considered gastritis, gastroenteritis, acute appendicitis, diverticulitis, urinary tract infection, cystitis, ovarian cyst, pelvic inflammatory disease, abdominal aortic aneurysm and myocardial infarction as a possible cause of abdominal pain in this patient. This is a partial list of diagnoses considered. Disposition: Discharged. CLINICAL IMPRESSION Chronic abdominal pain of undetermined cause. Anxiety reaction with hyperventilation. INSTRUCTIONS (consider taking benadryl at night time avoid any energy drinks). Warnings: Further evaluation is necessary. GENERAL WARNINGS: Return or contact your physician immediately if your condition worsens or changes unexpectedly, if not improving as expected, or if other problems arise. Prescription Medications: Phenergan 12.5 mg tablets: take 1 orally every 8 hours as needed for nausea. Dispense ten (10). No refill. Substitution is permissible Carafate Liquid 1g/10 mL: every 8 hours for 3 days as needed for indigestion or upset stomach. Dispense one hundred fifty (150) mL. No refill. Substitution is permissible. Follow-up: Follow up with your doctor in three days. (Electronically signed by Ronda Carreon P.A.-C 09/02/2016 16:21)
--- NOTE | 2016-09-02 14:13 | ED NURSING NOTES ---
Clinical Report - Nurses [facility] [place] [address] 09/02/2016 12:09 Patient: SANDRA CARUSO TRIAGE Triage time 12:17 Sep 02 2016. Acuity: LEVEL 3. Chief Complaint: DEPRESSION and ANXIETY. Alert. DAYNA COMA SCORE: [place] Coma Scale: 15- eyes open spontaneously (4); best verbal response- oriented x 4 (5); best motor response- obeys commands (6). --12:28 Emmett Pinto R.N. 12:17 09/02/16. BP: 159/120. HR: 104. RR: 22. O2 saturation: 100% on room air. Temp: 98.3 F (oral). Pain level now: 7/10. Additional comments: Abdominal Pain. --12:28 Emmett Pinto R.N. Weight: 58 kg stated. Height/Length: 65 inches Per Patient. BMI: 21.3. --12:20 Emmett Pinto R.N. Medications KlonoPIN Oral. NexIUM Oral. Zofran Oral 4 mg, PRN. --12:22 Emmett Pinto R.N. Amitriptyline HCl Oral 25 mg 1/2 tab, daily. --12:23 Emmett Pinto R.N. Benadryl Oral 25 mg, as needed. --12:24 Emmett Pinto R.N. Omeprazole Oral. --12:26 Emmett Pinto R.N. Zantac Oral. --12:26 Emmett Pinto R.N. Promethazine HCl Oral. Wellbutrin Oral. --12:26 Emmett Pinto R.N. Allergies No Known Drug Allergy. --12:22 Emmett Pinto R.N. History Arrived by private vehicle. Historian: patient. Unaccompanied. Primary physician ([place], [place]). ( Panic Attack associated with N/V and constipation). Onset. (about 1 month ago). She has had anxiety and sleeping difficulties and describes feelings of depression. Has been feeling agitated. 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 PAST MEDICAL HX: Immunizations: status is unknown. Last normal menstrual period was 3 weeks ago. Denies current . SOCIAL HX: Former smoker, end date 2006. No alcohol use or drug use. No infectious disease exposure. ABUSE ASSESSMENT: No report of abuse. FALL RISK ASSESSMENT: Fall risk assessment completed. No fall risk identified. NUTRITIONAL RISK ASSESSMENT: The nutritional risk assessment revealed no deficiencies. FUNCTIONAL ASSESSMENT: Functional assessment: no impairments noted. LEARNING NEEDS ASSESSMENT: The learning needs assessment revealed no barriers. SKIN INTEGRITY ASSESSMENT: Skin integrity risk assessment completed. No skin integrity risk identified. --12:28 Emmett Pinto R.N. ( Pt states that she had a "thickened appendix" on scan 3 weeks ago, still having pain in that area). --12:47 Darshana Fairchild R.N. PROBLEMS: Hypokalemia. Vomiting. Abdominal Pain. Hypertension. LNMP - Last Normal Menstrual Period. Gastroenteritis. Anxiety Reaction. --12:25 Emmett Pinto R.N. ADDITIONAL SURGERIES: Cholecystectomy. --12:25 Emmett Pinto R.N. Interventions ID band on patient. To room. --12:28 Emmett Pinto R.N. PHYSICAL ASSESSMENT 12:37. Ambulatory to room. Patient gowned. GENERAL / NEURO / PSYCH: Alert. Oriented X 4. Appears in pain. Speech within normal limits. Affect appears normal. Patient appears calm and cooperative. Good eye contact. Patient appears well-nourished and neat and clean. ( moaning , walking slightly bent over). RESPIRATORY: Respirations not labored. CVS: Capillary refill less than 2 seconds. GI / : ( c/o nausea). SKIN: Skin is warm and dry. --12:40 Darshana Fairchild R.N. NURSING PROGRESS NOTES 12:37 09/02/16. Patient gowned. Head of bed elevated. Reassurance given. Patient identifiers checked. Call light placed in reach. Side rails up. Bed placed in lowest position. Patient ready for evaluation- chart flagged. Care transferred and report received. --12:37 Darshana Fairchild R.N. 12:44 09/02/16. Patient ID band checked for patient name and birthdate: patient confirmed. Clean catch urine collected with return of yellow-colored urine; sample sent to lab for urinalysis, culture and HCG. Specimen labeled in the presence of the patient. --12:44 Darshana Fairchild R.N. 13:30 09/02/2016 Site #1 started via IV in the right antecubital space with an 20g angiocath, with aseptic technique and good blood return; one attempt. Blood drawn: rainbow set. Labeled in the presence of the patient and sent to the lab. Saline lock flushed with 10 mL saline. --13:40 Darshana Fairchild R.N. 13:30 09/02/2016 Started bag #1 1000 mL IV Fluids IV NS (Saline); at 1000 mL/hr over 1 hour(s) via site #1 via IV pump. IV patency established. IV site checked: no pain, redness, or swelling. IV flushed thoroughly pre- and post-medication administration. --13:41 Darshana Fairchild R.N. 13:31 09/02/2016 Ativan (LORazepam) IVP 1 mg given over 2 minute(s) via site #1. Sedative warning given to the patient. IV patency established. IV site checked: no pain, redness, or swelling. IV flushed thoroughly pre- and post-medication administration. IVP given by RN. --13:41 Darshana Fairchild R.N. 13:32 09/02/2016 Zofran (Ondansetron HCl) IVP 4 mg given over 1 minute(s) via site #1. IV patency established. IV site checked: no pain, redness, or swelling. IV flushed thoroughly pre- and post-medication administration. IVP given by RN. --13:42 Darshana Fairchild R.N. 13:50 Pt not moaning anymore, on phone in no acute distress. --14:00 Darshana Fairchild R.N. 14:28 09/02/16. BP: 127/75 (regular adult cuff) taken on the left arm, via an automated monitor, while lying. ED physician notified. HR: 86 (regular, normal rate and strong). RR: 18. O2 saturation: 99% on room air. --14:29 Thomas Jorge 14:15 09/02/2016 PHENERGAN (Promethazine HCl) IVP 12.5 mg given over 1 minute(s) via site #1. IV patency established. IV site checked: no pain, redness, or swelling. IV flushed thoroughly pre- and post-medication administration. IVP given by RN. --14:44 Darshana Fairchild R.N. 14:15 09/02/2016 GI cocktail - white * PO 30ml --14:45 Darshana Fairchild R.N. 14:20 09/02/2016 IV Fluids IV NS Discontinued: bag #1 STOPPED upon discharge. Total amount infused: 700 mL. IV patency established. IV site checked: no pain, redness, or swelling. IV flushed thoroughly. --14:45 Darshana Fairchild R.N. 14:25 09/02/2016 Site #1 removed upon discharge. Bandaid applied. --14:46 Darshana Fairchild R.N. DISPOSITION / DISCHARGE 14:30. Condition at departure: improved and stable. No learning barriers present. Discharge instructions provided and reviewed with the patient. Reviewed medication(s) (consider taking beadrl at night, phenergan, Carafate liquid). Patient verbalized understanding. Written instructions provided in Kazakh. The patient was discharged home and accompanied by mortgage closing clerk. She left the Emergency Department ambulatory and via private vehicle. Slug Press Operator driving. --19:19 Darshana Fairchild R.N. 14:30 09/02/16. BP: 120/74. HR: 89. RR: 18. O2 saturation: 98%. Temp: deferred. Pain level now: 10/04. --19:19 Darshana Fairchild R.N. Locked/Released at 09/02/2016 19:20 by Darshana Fairchild R.N.
--- NOTE | 2016-09-02 14:13 | ED NURSING NOTES ---
Clinical Report - Nurses [facility] [place] [address] 09/02/2016 12:09 Patient: SANDRA CARUSO TRIAGE Triage time 12:17 Sep 02 2016. Acuity: LEVEL 3. Chief Complaint: DEPRESSION and ANXIETY. Alert. DAYNA COMA SCORE: [place] Coma Scale: 15- eyes open spontaneously (4); best verbal response- oriented x 4 (5); best motor response- obeys commands (6). --12:28 Emmett Pinto R.N. 12:17 09/02/16. BP: 159/120. HR: 104. RR: 22. O2 saturation: 100% on room air. Temp: 98.3 F (oral). Pain level now: 7/10. Additional comments: Abdominal Pain. --12:28 Emmett Pinto R.N. Weight: 58 kg stated. Height/Length: 65 inches Per Patient. BMI: 21.3. --12:20 Emmett Pinto R.N. Medications KlonoPIN Oral. NexIUM Oral. Zofran Oral 4 mg, PRN. --12:22 Emmett Pinto R.N. Amitriptyline HCl Oral 25 mg 1/2 tab, daily. --12:23 Emmett Pinto R.N. Benadryl Oral 25 mg, as needed. --12:24 Emmett Pinto R.N. Omeprazole Oral. --12:26 Emmett Pinto R.N. Zantac Oral. --12:26 Emmett Pinto R.N. Promethazine HCl Oral. Wellbutrin Oral. --12:26 Emmett Pinto R.N. Allergies No Known Drug Allergy. --12:22 Emmett Pinto R.N. History Arrived by private vehicle. Historian: patient. Unaccompanied. Primary physician ([place], [place]). ( Panic Attack associated with N/V and constipation). Onset. (about 1 month ago). She has had anxiety and sleeping difficulties and describes feelings of depression. Has been feeling agitated. 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 PAST MEDICAL HX: Immunizations: status is unknown. Last normal menstrual period was 3 weeks ago. Denies current . SOCIAL HX: Former smoker, end date 2006. No alcohol use or drug use. No infectious disease exposure. ABUSE ASSESSMENT: No report of abuse. FALL RISK ASSESSMENT: Fall risk assessment completed. No fall risk identified. NUTRITIONAL RISK ASSESSMENT: The nutritional risk assessment revealed no deficiencies. FUNCTIONAL ASSESSMENT: Functional assessment: no impairments noted. LEARNING NEEDS ASSESSMENT: The learning needs assessment revealed no barriers. SKIN INTEGRITY ASSESSMENT: Skin integrity risk assessment completed. No skin integrity risk identified. --12:28 Emmett Pinto R.N. ( Pt states that she had a "thickened appendix" on scan 3 weeks ago, still having pain in that area). --12:47 Darshana Fairchild R.N. PROBLEMS: Hypokalemia. Vomiting. Abdominal Pain. Hypertension. LNMP - Last Normal Menstrual Period. Gastroenteritis. Anxiety Reaction. --12:25 Emmett Pinto R.N. ADDITIONAL SURGERIES: Cholecystectomy. --12:25 Emmett Pinto R.N. Interventions ID band on patient. To room. --12:28 Emmett Pinto R.N. PHYSICAL ASSESSMENT 12:37. Ambulatory to room. Patient gowned. GENERAL / NEURO / PSYCH: Alert. Oriented X 4. Appears in pain. Speech within normal limits. Affect appears normal. Patient appears calm and cooperative. Good eye contact. Patient appears well-nourished and neat and clean. ( moaning , walking slightly bent over). RESPIRATORY: Respirations not labored. CVS: Capillary refill less than 2 seconds. GI / : ( c/o nausea). SKIN: Skin is warm and dry. --12:40 Darshana Fairchild R.N. NURSING PROGRESS NOTES 12:37 09/02/16. Patient gowned. Head of bed elevated. Reassurance given. Patient identifiers checked. Call light placed in reach. Side rails up. Bed placed in lowest position. Patient ready for evaluation- chart flagged. Care transferred and report received. --12:37 Darshana Fairchild R.N. 12:44 09/02/16. Patient ID band checked for patient name and birthdate: patient confirmed. Clean catch urine collected with return of yellow-colored urine; sample sent to lab for urinalysis, culture and HCG. Specimen labeled in the presence of the patient. --12:44 Darshana Fairchild R.N. 13:30 09/02/2016 Site #1 started via IV in the right antecubital space with an 20g angiocath, with aseptic technique and good blood return; one attempt. Blood drawn: rainbow set. Labeled in the presence of the patient and sent to the lab. Saline lock flushed with 10 mL saline. --13:40 Darshana Fairchild R.N. 13:30 09/02/2016 Started bag #1 1000 mL IV Fluids IV NS (Saline); at 1000 mL/hr over 1 hour(s) via site #1 via IV pump. IV patency established. IV site checked: no pain, redness, or swelling. IV flushed thoroughly pre- and post-medication administration. --13:41 Darshana Fairchild R.N. 13:31 09/02/2016 Ativan (LORazepam) IVP 1 mg given over 2 minute(s) via site #1. Sedative warning given to the patient. IV patency established. IV site checked: no pain, redness, or swelling. IV flushed thoroughly pre- and post-medication administration. IVP given by RN. --13:41 Darshana Fairchild R.N. 13:32 09/02/2016 Zofran (Ondansetron HCl) IVP 4 mg given over 1 minute(s) via site #1. IV patency established. IV site checked: no pain, redness, or swelling. IV flushed thoroughly pre- and post-medication administration. IVP given by RN. --13:42 Darshana Fairchild R.N. 13:50 Pt not moaning anymore, on phone in no acute distress. --14:00 Darshana Fairchild R.N. 14:28 09/02/16. BP: 127/75 (regular adult cuff) taken on the left arm, via an automated monitor, while lying. ED physician notified. HR: 86 (regular, normal rate and strong). RR: 18. O2 saturation: 99% on room air. --14:29 Thomas Jorge 14:15 09/02/2016 PHENERGAN (Promethazine HCl) IVP 12.5 mg given over 1 minute(s) via site #1. IV patency established. IV site checked: no pain, redness, or swelling. IV flushed thoroughly pre- and post-medication administration. IVP given by RN. --14:44 Darshana Fairchild R.N. 14:15 09/02/2016 GI cocktail - white * PO 30ml --14:45 Darshana Fairchild R.N. 14:20 09/02/2016 IV Fluids IV NS Discontinued: bag #1 STOPPED upon discharge. Total amount infused: 700 mL. IV patency established. IV site checked: no pain, redness, or swelling. IV flushed thoroughly. --14:45 Darshana Fairchild R.N. 14:25 09/02/2016 Site #1 removed upon discharge. Bandaid applied. --14:46 Darshana Fairchild R.N. DISPOSITION / DISCHARGE 14:30. Condition at departure: improved and stable. No learning barriers present. Discharge instructions provided and reviewed with the patient. Reviewed medication(s) (consider taking beadrl at night, phenergan, Carafate liquid). Patient verbalized understanding. Written instructions provided in Georgian. The patient was discharged home and accompanied by design technology professor. She left the Emergency Department ambulatory and via private vehicle. Toy Electric Train Repairer driving. --19:19 Darshana Fairchild R.N. 14:30 09/02/16. BP: 120/74. HR: 89. RR: 18. O2 saturation: 98%. Temp: deferred. Pain level now: 10/04. --19:19 Darshana Fairchild R.N. Locked/Released at 09/02/2016 19:20 by Darshana Fairchild R.N.
--- NOTE | 2016-09-02 14:13 | ED CLINICAL REPORT ---
Clinical Report - Physicians/Mid Levels [facility] [address] [place] [address] 09/02/2016 12:09 Patient: SANDRA CARUSO Time Seen: 12:52 Sep 02 2016. Arrived- By private vehicle. Historian- patient. HISTORY OF PRESENT ILLNESS Chief Complaint: abd pain/ n/v/ anxiety. (Patient reports recurrent spells of abdominal pain, nausea sensation, she believes it is due to her cyclical vomiting syndrome, as well as exacerbated by her anxiety, and sensation of reflux, has seen multiple providers for this including her psychiatrist, primary care provider, as well as gastroenterology.). REVIEW OF SYSTEMS No fever, sore throat, sinus drainage, chills or difficulty with urination. No headache. She has had abdominal pain, nausea and vomiting. All systems otherwise negative, except as recorded above. PAST HISTORY Problems: Hypokalemia. Vomiting. . Abdominal Pain. UTI - Urinary Tract Infection. Hypertension. LNMP - Last Normal Menstrual Period. Gastroenteritis. Anxiety Reaction. Additional Surgeries: Cholecystectomy. Medications: Promethazine HCl Oral. Wellbutrin Oral. Zantac Oral. Omeprazole Oral. Benadryl Oral 25 mg, as needed. Amitriptyline HCl Oral 25 mg 1/2 tab, daily. KlonoPIN Oral. NexIUM Oral. Zofran Oral 4 mg, PRN. Allergies: No Known Drug Allergy. SOCIAL HISTORY Former smoker. No alcohol use or drug use. ADDITIONAL NOTES The nursing notes have been reviewed. PHYSICAL EXAM Vital Signs: 09/02/2016 12:17 BP: 159/120. HR: 104. RR: 22. O2 saturation: 100%. Temp: 98.3 F. Pain level now: 7/10. Appearance: Alert. Eyes: Eyes normal inspection. Neck: Normal inspection. Neck supple. CVS: Normal heart rate and rhythm. Heart sounds normal. Rhythm normal. No extra heart sounds. Respiratory: No respiratory distress. Breath sounds normal. No accessory muscle use. Abdomen: Mild tenderness in the periumbilical area. No guarding or Jones's sign present. No organomegaly. No mass. Skin: Skin warm. LABS, X-RAYS, AND EKG Laboratory Tests: UA-Culture if indicated: (NOE: 09/02/2016 12:40) ( [facility] 09/02/2016 13:15) Final results Test Result Flag Units (Reference) URINE COLOR YELLOW URINE APPEARANCE HAZY URINE GLUCOSE NEGATIVE (NEGATIVE) URINE BILIRUBIN NEGATIVE (NEGATIVE) URINE KETONE 2+ (NEGATIVE) URINE SPECIFIC GRAVITY 1.025 (1.010-1.030) URINE PH 6.0 (5.0-8.0) URINE PROTEIN NEGATIVE (NEGATIVE) URINE UROBILINOGEN 0.2 EU/dL (0.2-1.0) URINE NITRITE NEGATIVE (NEGATIVE) URINE BLOOD 3+ (NEGATIVE) URINE LEUK ESTERASE NEGATIVE (NEGATIVE) URINE RBC 3-5 rbc/hpf (0-1) URINE WBC 0-1 wbc/hpf (0-1) URINE EPITHELIAL CELLS 5-10 EPI/hpf (0-5) URINE BACTERIA FEW (1+) (NONE SEEN) URINE COMMENT CULT NOT INDICATED RARE TRANSITIONAL EPITHELIAL CELLSURINE CULTURES ARE SET-UP BASED ON THE FOLLOWING CRITERIA:POSITIVE NITRITEPOSITIVE LEUKOCYTE ESTERASEGREATER THAN 10 WHITE BLOOD CELLSMODERATE (2+) OR GREATER BACTERIA Urine: (NOE: 09/02/2016 12:40) ( [facility] 09/02/2016 12:56) Final results Test Result Flag Units (Reference) URINE NEGATIVE CBC w Diff: (NOE: 09/02/2016 13:22) ( [facility] 09/02/2016 13:42) Final results Test Result Flag Units (Reference) WHITE BLOOD COUNT 7.6 K/uL (4.5-11.5) RED BLOOD COUNT 4.54 M/uL (4.00-5.20) HEMOGLOBIN 13.5 gm/dL (12.0-16.0) HEMATOCRIT 39.6 % (36.0-46.0) MEAN CELL VOLUME 87 fL (80-100) MEAN CORPUSCULAR HGB 30 pg (26-34) MEAN CORPUSCULAR HGB CONC 34 g/dL (31-37) RED CELL DISTRIBUTION WIDTH 12.5 % (11.6-14.8) PLATELET COUNT 298 K/uL (150-400) NEUTROPHIL % 68.3 % (50-75) LYMPH % 25.3 % (25-40) MONO % 5.0 % (3-14) EOSINOPHIL % 0.4 % (0-4) BASOPHIL % 1.0 % (0-2) CMP: (NOE: 09/02/2016 13:22) ( MsgRcvd 09/02/2016 13:58) Final results Test Result Flag Units (Reference) GLUCOSE 88 mg/dL (70-110) BUN 16 mg/dL (7-18) CREATININE 0.8 mg/dL (0.6-1.3) Estimated GFR >60 mL/min Estimated GFR- >60 mL/min Note: Persistent reduction over 3 months in eGFR<60 mL/min/1.73 m2 defines CKD. Patients with eGFR values>=60 mL/min/1.73 m2 may also have CKD if evidence ofpersistent proteinuria. Additional information may be foundat www.kidney.org. SODIUM 141 mmol/L (136-145) POTASSIUM 3.2 L mmol/L (3.5-5.1) CHLORIDE 105 mmol/L (98-107) CARBON DIOXIDE 21 mmol/L (21-32) CALCIUM 9.2 mg/dL (8.5-10.1) TOTAL PROTEIN 7.6 g/dL (6.4-8.2) ALBUMIN 4.3 g/dL (3.3-5.0) BILIRUBIN, TOTAL 0.9 mg/dL (0.0-1.0) ALKALINE PHOSPHATASE 51 U/L (46-116) AST (SGOT) 14 L U/L (15-37) ALT (SGPT) 19 U/L (12-78) . PROGRESS AND PROCEDURES Course of Care: patient here in the ER, with no emesis. Patient very stable. This is an ongoing for a long time, Workup included CT abdomen one month previously, with coronary for abdominal pain, due to appendicitis, patient with no rebound or guarding at this time, this is most suspicious, given such as of one month from incident. Patient stable. 09/02/2016 14:28 BP: 127/75. HR: 86. RR: 18. O2 saturation: 99%. Patient is stable. Physical exam findings are improved. Symptoms better. Patient/family counseled. Differential Diagnosis: I considered gastritis, gastroenteritis, acute appendicitis, diverticulitis, urinary tract infection, cystitis, ovarian cyst, pelvic inflammatory disease, abdominal aortic aneurysm and myocardial infarction as a possible cause of abdominal pain in this patient. This is a partial list of diagnoses considered. Disposition: Discharged. CLINICAL IMPRESSION Chronic abdominal pain of undetermined cause. Anxiety reaction with hyperventilation. INSTRUCTIONS (consider taking benadryl at night time avoid any energy drinks). Warnings: Further evaluation is necessary. GENERAL WARNINGS: Return or contact your physician immediately if your condition worsens or changes unexpectedly, if not improving as expected, or if other problems arise. Prescription Medications: Phenergan 12.5 mg tablets: take 1 orally every 8 hours as needed for nausea. Dispense ten (10). No refill. Substitution is permissible Carafate Liquid 1g/10 mL: every 8 hours for 3 days as needed for indigestion or upset stomach. Dispense one hundred fifty (150) mL. No refill. Substitution is permissible. Follow-up: Follow up with your doctor in three days. (Electronically signed by Ronda Carreon P.A.-C 09/02/2016 16:21)
--- NOTE | 2016-09-02 14:13 | ED ORDER SUMMARY ---
..... Patient: SANDRA CARUSO OrderSheet [facility] VisitID: [id number] [place] [address] 36y, F Registration Date/Time: 09/02/2016 ORDER SHEET Weight: 58.0 kg (stated) Allergies: No Known Drug Allergy GENERAL ORDERS: UA-Culture if indicated Urgent (12:42 09/02/2016 DDean R.N. per protocol) (Ack 13:01 LNations ER Tech1) (13:01 LNations ER Tech1) Urine Urgent (12:42 09/02/2016 DDean R.N. per protocol) (Ack 13:01 LNations ER Tech1) (13:01 LNations ER Tech1) CBC w Diff Urgent (13:13 09/02/2016 EKoroleva P.A.-C) (Ack 13:14 LNations ER Tech1) (13:40 DDean R.N.) CMP Urgent (13:13 09/02/2016 EKoroleva P.A.-C) (Ack 13:14 LNations ER Tech1) (13:40 DDean R.N.) Vitals (14:04 09/02/2016 EKoroleva P.A.-C) (14:43 DDean R.N.) MEDICATION ORDERS: Phenergan IV 12.5 mg (HIGH ALERT MEDICATION, NOW) (14:01 09/02/2016 EKoroleva P.A.-C) (14:44 DDean R.N.) GI Cocktail WHITE PO 30 mL with Lidocaine Viscous Mouth/Throat 15 mL, Maalox Plus Oral 15 mL (NOW) (14:01 09/02/2016 EKoroleva P.A.-C) (14:45 DDean R.N.) IV FLUIDS: IV NS : initial bolus 1000 mL (1000 mL/hr), then 1000 mL/hr for X1 (NOW); Adam (13:13 09/02/2016 EKoroleva P.A.-C) (Ack 13:18 DDean R.N.) (13:41 DDean R.N.) Ativan IV 1 mg (HIGH ALERT MEDICATION, NOW) (13:14 09/02/2016 Adrienne Valencia) (Ack 13:18 DDean R.N.) (13:41 DDean R.N.) Zofran IV 4 mg (NOW) (13:41 09/02/2016 DDean R.N. per protocol) (13:42 DDean R.N.) ORDER SHEET NOTES: [Electronically signed by Ronda Carreon P.A.-C (16:21 09/02/2016)] [Electronically signed by Darshana Fairchild R.N. (19:20 09/02/2016)] [Electronically locked/signed by Darshana Fairchild R.N. (19:20 09/02/2016)]
--- NOTE | 2016-09-02 14:13 | ED ORDER SUMMARY ---
..... Patient: SANDRA CARUSO OrderSheet [facility] VisitID: [id number] [place] [address] 36y, F Registration Date/Time: 09/02/2016 ORDER SHEET Weight: 58.0 kg (stated) Allergies: No Known Drug Allergy GENERAL ORDERS: UA-Culture if indicated Urgent (12:42 09/02/2016 DDean R.N. per protocol) (Ack 13:01 LNations ER Tech1) (13:01 LNations ER Tech1) Urine Urgent (12:42 09/02/2016 DDean R.N. per protocol) (Ack 13:01 LNations ER Tech1) (13:01 LNations ER Tech1) CBC w Diff Urgent (13:13 09/02/2016 EKoroleva P.A.-C) (Ack 13:14 LNations ER Tech1) (13:40 DDean R.N.) CMP Urgent (13:13 09/02/2016 EKoroleva P.A.-C) (Ack 13:14 LNations ER Tech1) (13:40 DDean R.N.) Vitals (14:04 09/02/2016 EKoroleva P.A.-C) (14:43 DDean R.N.) MEDICATION ORDERS: Phenergan IV 12.5 mg (HIGH ALERT MEDICATION, NOW) (14:01 09/02/2016 EKoroleva P.A.-C) (14:44 DDean R.N.) GI Cocktail WHITE PO 30 mL with Lidocaine Viscous Mouth/Throat 15 mL, Maalox Plus Oral 15 mL (NOW) (14:01 09/02/2016 EKoroleva P.A.-C) (14:45 DDean R.N.) IV FLUIDS: IV NS : initial bolus 1000 mL (1000 mL/hr), then 1000 mL/hr for X1 (NOW); Adam (13:13 09/02/2016 EKoroleva P.A.-C) (Ack 13:18 DDean R.N.) (13:41 DDean R.N.) Ativan IV 1 mg (HIGH ALERT MEDICATION, NOW) (13:14 09/02/2016 Adrienne Valencia) (Ack 13:18 DDean R.N.) (13:41 DDean R.N.) Zofran IV 4 mg (NOW) (13:41 09/02/2016 DDean R.N. per protocol) (13:42 DDean R.N.) ORDER SHEET NOTES: [Electronically signed by Ronda Carreon P.A.-C (16:21 09/02/2016)] [Electronically signed by Darshana Fairchild R.N. (19:20 09/02/2016)] [Electronically locked/signed by Darshana Fairchild R.N. (19:20 09/02/2016)]
--- NOTE | 2016-09-02 19:21 | ED DISCHARGE INSTRUCTIONS ---
Patient: SANDRA CARUSO General Instructions [facility] VisitID: [id number] [place] [address] 36y, F Registration Date/Time: 09/02/2016 Chronic abdominal pain of undetermined cause. Anxiety reaction with hyperventilation. INSTRUCTIONS (consider taking benadryl at night time avoid any energy drinks). Warnings: Further evaluation is necessary. GENERAL WARNINGS: Return or contact your physician immediately if your condition worsens or changes unexpectedly, if not improving as expected, or if other problems arise. Prescription Medications: Phenergan 12.5 mg tablets: take 1 orally every 8 hours as needed for nausea. Dispense ten (10). No refill. Substitution is permissible Carafate Liquid 1g/10 mL: every 8 hours for 3 days as needed for indigestion or upset stomach. Dispense one hundred fifty (150) mL. No refill. Substitution is permissible. Follow-up: Follow up with your doctor in three days. ADDITIONAL INFORMATION Abdominal Pain, Unknown Cause (Female) The exact cause of your abdominal (stomach) pain is not certain. This does not mean that this is something to worry about, or the right tests were not done. Everyone likes to know the exact cause of the problem, but sometimes with abdominal pain, there is no clear-cut cause, and this could be a good thing. The good news is that your symptoms can be treated, and you will feel better. Your condition does not seem serious now; however, sometimes the signs of a serious problem may take more time to appear. For this reason,it is important for you to watch for any new symptoms, problems,or worsening of your condition. Over the next few days, the abdominal pain may come and go, or be continuous. Other common symptoms can include nausea and vomiting. Sometimes it can be difficult to tell if you feel nauseous, you may just feel bad and not associate that feeling with nausea. Constipation, diarrhea, and a fever may go along with the pain. The pain may continue even if treated correctly over the following days. Depending on how things go, sometimes the cause can become clear and may require further or different treatment. Additional evaluations, medications, or tests may be needed. Home care Your health care provider may prescribe medications for pain, symptoms, or an infection. Follow the health care provider's instructions for taking these medications. General care Rest until your next exam. No strenuous activities. Try to find positions that ease discomfort. A small pillow placed on the abdomen may help relieve pain. Something warm on your abdomen (such as a heating pad) may help, but be careful not to burn yourself. Diet Do not force yourself to eat, especially if having cramps, vomiting, or diarrhea. Water is important so you do not get dehydrated. Soup may also be good. Sports drinks may also help, especially if they are not too acidic. Make sure you don't drink sugary drinks as this can make things worse. Take liquids in small amounts. Do not guzzle them. Caffeine sometimes makes the pain and cramping worse. Avoid dairy products if you have vomiting or diarrhea. Don't eat large amounts at a time. Wait a few minutes between bites. Eat a diet low in fiber (called a low-residue diet). Foods allowed include refined breads, white rice, fruit and vegetable juices without pulp, tender meats. These foods will pass more easily through the intestine. Avoid whole-grain foods, whole fruits and vegetables, meats, seeds and nuts, fried or fatty foods, dairy, alcohol and spicy foods until your symptoms go away. Follow-up care Follow up with your health care provider as instructed, or if your pain does not begin to improve in the next 24 hours. When to seek medical care Seek prompt medical care if any of the following occur: Pain gets worse or moves to the right lower abdomen New or worsening vomiting or diarrhea Swelling of the abdomen Unable to pass stool for more than three days Fever of 100.4F (38C) or higher, or as directed by your healthcare provider. Blood in vomit or bowel movements (dark red or black color) Jaundice (yellow color of eyes and skin) Weakness, dizziness Chest, arm, back, neck or jaw pain Unexpected vaginal bleeding or missed period Call 911 Call emergency services if any of the following occur: Trouble breathing Confusion Fainting or loss of consciousness Rapid heart rate Seizure Stress Reaction Anxiety is the feeling we all get when we think something bad might happen. It is a normal response to stress and usually causes only a mild reaction. When anxiety becomes more severe, emotions may interfere with daily life. In some cases, you may not even be aware of what it is youre anxious about! During an anxiety reaction, you may feel like you are helpless, nervous, depressed or irritable. Your body may show signs of anxiety in many ways. You may experience dry mouth, shakiness, dizziness, weakness, trouble breathing, chest pressure, headache, nausea, diarrhea, tiredness, inability to sleep or sexual problems. Home Care: 1) Try to locate the sources of stress in your life. They may not be obvious! These may include: -- Daily hassles of life which pile up (traffic jams, missed appointments, car troubles, etc.) -- Major life changes, both good (new baby, job promotion) and bad (loss of job, loss of loved one) -- Overload: feeling that you have too many responsibilities and can't take care of all of them at once -- Feeling helpless, feeling that your problems are beyond what youre able to solve 2) Notice how your body reacts to stress. Learn to listen to your body signals. This will help you take action before the stress becomes severe. 3) When you can, do something about the source of your stress. (Avoid hassles, limit the amount of change that happens in your life at one time and take a break when you feel overloaded). 4) Unfortunately, many stressful situations cannot be avoided. It is necessary to learn HOW TO MANAGE STRESS better. There are many proven methods that will reduce your anxiety. These include simple things like exercise, good nutrition and adequate rest. Also, there are certain techniques that are helpful: relaxation and breathing exercises, visualization, biofeedback and meditation. For more information about this, consult your doctor or go to a local bookstore and review the many books and tapes available on this subject. Follow Up If you feel that your anxiety is not responding to self-help measures, contact your doctor or make an appointment with a counselor. Get Prompt Medical Attention if any of the following occur: -- Your symptoms get worse -- Chest pain or trouble breathing -- Severe headache not relieved by rest and mild pain reliever -- Rapid or irregular heartbeat, fainting You have been given the following additional information: Abdominal Pain, Unknown Cause, (Female) Anxiety Reaction (Electronically signed by Ronda Carreon P.A.-C 09/02/2016 16:21)
--- NOTE | 2016-09-02 19:21 | ED MAR SUMMARY ---
..... Medication Administration Record [facility] [address] [place] [address] Patient: SANDRA CARUSO Visit ID: [id number] 36y, F Weight: 58.0 kg Height/Length: 65 in BMI: 21.3 ALLERGIES: No Known Drug Allergy Start 13:30 09/02/2016 Darshana Fairchild R.N., Stop 14:20 09/02/2016 Darshana Fairchild R.N. Medication Administered: IV NS (SALINE), Dose: IV Fluids over 1 hour(s), Rate: 1000 mL/hr, Dispensed: 1000 mL bag, Site: #1 right AC. Medication Ordered: IV NS : initial bolus 1000 mL (1000 mL/hr), then 1000 mL/hr for X1 (NOW); Adam. Given 13:31 09/02/2016 Darshana Fairchild R.N. Medication Administered: ATIVAN [IVP] (LORAZEPAM), Dose: 1 mg IVP over 2 minute(s), Site: #1 right AC. Medication Ordered: Ativan IV 1 mg (HIGH ALERT MEDICATION, NOW). Given 13:32 09/02/2016 Darshana Fairchild R.N. Medication Administered: ZOFRAN [IVP] (ONDANSETRON HCL), Dose: 4 mg IVP over 1 minute(s), Site: #1 right AC. Medication Ordered: Zofran IV 4 mg (NOW). Given 14:15 09/02/2016 Darshana Fairchild R.N. Medication Administered: PHENERGAN [IVP] (PROMETHAZINE HCL), Dose: 12.5 mg IVP over 1 minute(s), Site: #1 right AC. Medication Ordered: Phenergan IV 12.5 mg (HIGH ALERT MEDICATION, NOW). Given 14:09/02/2016 Darshana Fairchild R.N. Medication Administered: GI cocktail - white *, Dose: 30ml * PO. Medication Ordered: GI Cocktail WHITE PO 30 mL with Lidocaine Viscous Mouth/Throat 15 mL, Maalox Plus Oral 15 mL (NOW).
--- NOTE | 2016-09-02 19:21 | ED MED RECONCILIATION SUMMARY ---
Patient: SANDRA CARUSO Medication Reconciliation Report [facility] VisitID: [id number] [place] [address] 36y, F Registration Date/Time: 09/02/2016 Weight: 58.0 kg Height/Length: 65 in. BMI: 21.3 ALLERGIES: No Known Drug Allergy The patient's Home Medications are listed below: THE FOLLOWING MEDICATIONS NEED TO BE RECONCILED: Amitriptyline HCl Oral 25 mg 1/2 tab, daily Benadryl Oral 25 mg KlonoPIN Oral NexIUM Oral Omeprazole Oral Promethazine HCl Oral Wellbutrin Oral Zantac Oral Zofran Oral 4 mg, PRN The source(s) of the original Home Medication information: Not obtained. The following Medications were given to the patient in the Emergency Department: IV NS IV Fluids bolus 0, then 1000 mL/hr, administered: 09/02/2016 1:30:00 PM Ativan [IVP] IVP 1 mg, administered: 09/02/2016 1:31:00 PM Zofran [IVP] IVP 4 mg, administered: 09/02/2016 1:32:00 PM PHENERGAN [IVP] IVP 12.5 mg, administered: 09/02/2016 2:15:00 PM GI cocktail - white PO 30ml, administered: 09/02/2016 2:15:00 PM The following Medications were prescribed to the patient: Phenergan 12.5 mg tablets: take 1 orally every 8 hours as needed for nausea. Dispense ten (10). No refill. Substitution is permissible -- Ronda Carreon, P.A.-Dung Carafate Liquid 1g/10 mL: every 8 hours for 3 days as needed for indigestion or upset stomach. Dispense one hundred fifty (150) mL. No refill. Substitution is permissible. -- Ronda Carreon, P.A.-C
--- NOTE | 2016-09-02 19:21 | ED MAR SUMMARY ---
..... Medication Administration Record [facility] [address] [place] [address] Patient: SANDRA CARUSO Visit ID: [id number] 36y, F Weight: 58.0 kg Height/Length: 65 in BMI: 21.3 ALLERGIES: No Known Drug Allergy Start 13:30 09/02/2016 Darshana Fairchild R.N., Stop 14:20 09/02/2016 Darshana Fairchild R.N. Medication Administered: IV NS (SALINE), Dose: IV Fluids over 1 hour(s), Rate: 1000 mL/hr, Dispensed: 1000 mL bag, Site: #1 right AC. Medication Ordered: IV NS : initial bolus 1000 mL (1000 mL/hr), then 1000 mL/hr for X1 (NOW); Adam. Given 13:31 09/02/2016 Darshana Fairchild R.N. Medication Administered: ATIVAN [IVP] (LORAZEPAM), Dose: 1 mg IVP over 2 minute(s), Site: #1 right AC. Medication Ordered: Ativan IV 1 mg (HIGH ALERT MEDICATION, NOW). Given 13:32 09/02/2016 Darshana Fairchild R.N. Medication Administered: ZOFRAN [IVP] (ONDANSETRON HCL), Dose: 4 mg IVP over 1 minute(s), Site: #1 right AC. Medication Ordered: Zofran IV 4 mg (NOW). Given 14:15 09/02/2016 Darshana Fairchild R.N. Medication Administered: PHENERGAN [IVP] (PROMETHAZINE HCL), Dose: 12.5 mg IVP over 1 minute(s), Site: #1 right AC. Medication Ordered: Phenergan IV 12.5 mg (HIGH ALERT MEDICATION, NOW). Given 14:09/02/2016 Darshana Fairchild R.N. Medication Administered: GI cocktail - white *, Dose: 30ml * PO. Medication Ordered: GI Cocktail WHITE PO 30 mL with Lidocaine Viscous Mouth/Throat 15 mL, Maalox Plus Oral 15 mL (NOW).
--- NOTE | 2016-09-02 19:21 | ED MED RECONCILIATION SUMMARY ---
Patient: SANDRA CARUSO Medication Reconciliation Report [facility] VisitID: [id number] [place] [address] 36y, F Registration Date/Time: 09/02/2016 Weight: 58.0 kg Height/Length: 65 in. BMI: 21.3 ALLERGIES: No Known Drug Allergy The patient's Home Medications are listed below: THE FOLLOWING MEDICATIONS NEED TO BE RECONCILED: Amitriptyline HCl Oral 25 mg 1/2 tab, daily Benadryl Oral 25 mg KlonoPIN Oral NexIUM Oral Omeprazole Oral Promethazine HCl Oral Wellbutrin Oral Zantac Oral Zofran Oral 4 mg, PRN The source(s) of the original Home Medication information: Not obtained. The following Medications were given to the patient in the Emergency Department: IV NS IV Fluids bolus 0, then 1000 mL/hr, administered: 09/02/2016 1:30:00 PM Ativan [IVP] IVP 1 mg, administered: 09/02/2016 1:31:00 PM Zofran [IVP] IVP 4 mg, administered: 09/02/2016 1:32:00 PM PHENERGAN [IVP] IVP 12.5 mg, administered: 09/02/2016 2:15:00 PM GI cocktail - white PO 30ml, administered: 09/02/2016 2:15:00 PM The following Medications were prescribed to the patient: Phenergan 12.5 mg tablets: take 1 orally every 8 hours as needed for nausea. Dispense ten (10). No refill. Substitution is permissible -- Ronda Carreon, P.A.-Dung Carafate Liquid 1g/10 mL: every 8 hours for 3 days as needed for indigestion or upset stomach. Dispense one hundred fifty (150) mL. No refill. Substitution is permissible. -- Ronda Carreon, P.A.-C
== END 2016-09-02 14:30 | disposition home or self-care (01) ==
LOC: ED SRH 12:09
DX: R10.9 Unspecified abdominal pain (principal); F41.1 Generalized anxiety disorder; R06.4 Hyperventilation; R11.2 Nausea with vomiting, unspecified; I10 Essential (primary) hypertension; Z87.891 Personal history of nicotine dependence; Z79.899 Other long term (current) drug therapy
CPT/HCPCS: 90004; 90100; 93070; 95059

== ENCOUNTER 2017-01-02 10:30 | Emergency (ER) | payer OTHER ==
--- NOTE | 2017-01-02 14:37 | ED ORDER SUMMARY ---
..... Patient: SANDRA CARUSO [facility] VisitID: [id number] [address] [place] [address] 36y, F Registration Date/Time: 01/02/2017 ORDER SHEET Weight: 63.5 kg (stated) Allergies: No Known Drug Allergy GENERAL ORDERS: CMP Urgent (01/02/2017 Joesph WITT) (Ack 11:36 Keshav) (12:08 SRoberts R.N.) Amylase Urgent (01/02/2017 Joesph WITT) (Ack 11:36 Keshav) (12:08 Jered R.N.) Lipase Urgent (01/02/2017 Joesph WITT) (Ack 11:36 Keshav) (12:08 Hannahts R.N.) Urine Urgent (01/02/2017 Joesph WITT) (Ack 11:36 Keshav) (Cancelled: Physician Order15:30 Hannahts R.N.) Urine Drug Screen Urgent (01/02/2017 Joesph WITT) (Ack 11:36 Keshav) (Cancelled: Physician Order15:30 oberts R.N.) UA-Culture if indicated Urgent (01/02/2017 Joesph WITT) (Ack 11:36 Keshav) (Cancelled: Physician Order15:30 oberts R.N.) MEDICATION ORDERS: Phenergan IV 12.5 mg (NOW) (01/02/2017 Joesph WITT) (Ack 12:08 Hannahts R.N.) (12:36 oberts R.N.) IV FLUIDS: IV NS : initial bolus 1000 mL (1000 mL/hr), then 250 mL/hr for 4h (NOW); Routine (01/02/2017 Joesph WITT) (Ack 12:08 oberts R.N.) (12:33 SRoberts R.N.) Ativan IV 1 mg (NOW) (01/02/2017 Joesph WITT) (Ack 12:08 SRoberts R.N.) (12:36 SRoberts R.N.) Dilaudid IV 0.5 mg (NOW) (13:00 01/02/2017 Joesph WITT) (Ack 13:08 SRoberts R.N.) (15:32 SRoberts R.N.) Benadryl IV 25 mg (NOW) (13:01/02/2017 Joesph WITT) (Ack 13:08 oberparish R.N.) (15:33 SRoberts R.N.) Haldol IV 3 mg (NOW) (13:00 01/02/2017 Joesph WITT) (Ack 13:08 SRoberts R.N.) (15:34 SRoberts R.N.) ORDER SHEET NOTES: [Electronically signed by Kylie Wood R.N. (15:34 01/02/2017)] [Electronically signed by Doug Morse MD (21:46 01/02/2017)] [Electronically locked/signed by Kylie Wood R.N. (15:34 01/02/2017)]
--- NOTE | 2017-01-02 14:37 | ED NURSING NOTES ---
Clinical Report - Nurses [facility] [address] [place] [address] 01/02/2017 10:32 Patient: SANDRA CARUSO TRIAGE Triage time 10:41. Acuity: LEVEL 3. Chief Complaint: ABDOMINAL PAIN and NAUSEA. Alert. --10:50 Kylie Wood R.N. 10:41 01/02/17. BP: 146/92. HR: 72. RR: 18. O2 saturation: 100%. Temp: 97.4 F. Pain level now: 03/06. --10:50 Kylie Wood R.N. Weight: 63.5 kg stated. Height/Length: 65 inches Per Patient. BMI: 23.3. --10:47 Kylie Wood R.N. Medications Omeprazole Oral. Promethazine HCl Oral. Wellbutrin Oral 150 mg, 3x a day. Zofran Oral 4 mg, PRN. --10:44 Kylie Wood R.N. Promethazine HCl Rectal (Suppository 25 mg) 1 suppository, as needed. --10:45 Kylie Wood R.N. SUMAtriptan Succinate Oral 100mg , as needed (mr x 2 ). --10:45 Kylie Wood R.N. Medication/allergy information source: the patient. --10:50 Kylie Wood R.N. Allergies No Known Drug Allergy. --10:44 Kylie Wood R.N. History Arrived by EMS. Historian: patient. Primary physician (Zhang). This started today. She has had vomiting. The vomiting has occurred several times and constant abdominal pain. The pain is described as located in the upper abdomen, epigastrium and lower abdomen. She has had diarrhea (1 days). Treatment CHANGE COORDINATOR: (Seen and treated at the clinic with fl and meds. See info). PAST MEDICAL HX: Immunizations: up-to-date. Last normal menstrual period was 1 week ago. SOCIAL HX: Smoker- current status unknown. Occasional alcohol use. History of drug use: marijuana. Recently used drugs yesterday. No recent travel. No known contact with a sick individual. ABUSE ASSESSMENT: No report of abuse. FALL RISK ASSESSMENT: Fall risk assessment completed. No fall risk identified. NUTRITIONAL RISK ASSESSMENT: The nutritional risk assessment revealed no deficiencies. FUNCTIONAL ASSESSMENT: Functional assessment: no impairments noted. LEARNING NEEDS ASSESSMENT: The learning needs assessment revealed no barriers. SKIN INTEGRITY ASSESSMENT: Skin integrity risk assessment completed. No skin integrity risk identified. --10:50 Kylie Wood R.N. PROBLEMS: Cyclic vomiting syndrom x 15 yrs. Hypokalemia. Vomiting. Abdominal Pain. UTI - Urinary Tract Infection. Hypertension. Gastroenteritis. Anxiety Reaction. --10:47 Kylie Wood R.N. ADDITIONAL SURGERIES: Cholecystectomy. --10:47 Kylie Wood R.N. Interventions ID band on patient. To room. --10:50 Kylie Wood R.N. PHYSICAL ASSESSMENT To room via stretcher. Patient gowned. GENERAL / NEURO / PSYCH: Alert. Oriented X 4. Appears in pain and anxious. HEENT: Mucous membranes are pink. RESPIRATORY: Respirations not labored. CVS: Capillary refill less than 2 seconds. GI / : The patient has diarrhea. This has occurred several times. Abdominal tenderness in the upper and lower abdomen and epigastric area. SKIN: Skin is warm and dry. --10:51 Kylie Wood R.N. NURSING PROGRESS NOTES Patient gowned. Head of bed elevated. Two patient identifiers checked. Call light placed in reach. Side rails up x 2. Bed placed in lowest position. Brakes of bed on. Patient ready for evaluation. --10:51 Kylie Wood R.N. 10:45 01/02/2017 Started bag #1 1000 mL IV Fluids IV NS (Saline); at 1000 mL/hr over 1 hour(s) via site #1 via IV pump. Allergies verified and confirmed 5 rights. IV patency established. IV site checked: no pain, redness, or swelling. IV flushed thoroughly pre- and post-medication administration. --12:37 Kylie Wood R.N. 11:00 01/02/2017 Site #1 started prior to arrival in doctor's office via IV in the left antecubital space with an 20g angiocath, with aseptic technique and good blood return; one attempt. Saline lock flushed with 10 mL saline. --12:33 Kylie Wood R.N. 12:23 01/02/2017 IV Fluids IV NS Bag Change: bag #1 infused. Total amount infused: 1000. STARTED bag #2 (1000 mL) at 250 mL/hr via IV pump. Confirmed 5 rights. IV patency established. IV site checked: no pain, redness, or swelling. IV flushed thoroughly. --12:38 Kylie Wood R.N. 12:01/02/2017 PHENERGAN (Promethazine HCl) IVP 12.5 mg given over 1 minute(s) via site #1. Allergies verified and confirmed 5 rights. IV patency established. IV site checked: no pain, redness, or swelling. IV flushed thoroughly pre- and post-medication administration. IVP given by RN. --12:36 Kylie Wood R.N. 12:01/02/2017 Ativan (LORazepam) IVP 1 mg given over 1 minute(s) via site #1. Allergies verified, confirmed 5 rights and sedative warning given to the patient. IV patency established. IV site checked: no pain, redness, or swelling. IV flushed thoroughly pre- and post-medication administration. IVP given by RN. --12:36 Kylie Wood R.N. 12:01/02/2017 Started bag #2 250 mL IV Fluids IV NS (Saline); at 250 mL/hr via site #1 via IV pump. Allergies verified and confirmed 5 rights. IV patency established. IV site checked: no pain, redness, or swelling. IV flushed thoroughly pre- and post-medication administration. --12:33 Kylie Wood R.N. 13:01/02/17. BP: 145/70. HR: 79. RR: 18. O2 saturation: 97%. Pain level now: 01/04. --13:32 Kylie Wood R.N. 13:01/02/2017 Dilaudid (HYDROmorphone HCl PF) IVP 1 mg given over 1 minute(s) via site #1. Sedative warning given to the patient. IV patency established. IV site checked: no pain, redness, or swelling. IV flushed thoroughly pre- and post-medication administration. IVP given by RN. --15:32 Kylie Wood R.N. 13:10 01/02/2017 Benadryl (DiphenhydrAMINE HCl) IVP 25 mg given. via site #1. Allergies verified, confirmed 5 rights and sedative warning given to the patient. IV patency established. IV site checked: no pain, redness, or swelling. IV flushed thoroughly pre- and post-medication administration. IVP given by RN. --15:33 Kylie Wood R.N. 13:12 01/02/2017 HALDOL (Haloperidol Lactate) IVP 3 mg given over 1 minute(s) via site #1. Allergies verified, confirmed 5 rights and sedative warning given to the patient. IV patency established. IV site checked: no pain, redness, or swelling. IV flushed thoroughly pre- and post-medication administration. IVP given by RN. --15:34 Kylie Wood R.N. 14:17 01/02/17. ( Asleep, resting comfortably. sat 96% ra, hr 65.). --14:17 Kylie Wood R.N. 15:00 01/02/2017 Site #1 removed upon discharge. Catheter intact. Bandaid applied. --15:31 Kylie Wood R.N. 15:00 01/02/2017 IV Fluids IV NS Discontinued: bag #2 STOPPED upon discharge. Total amount infused: 600 mL. IV patency established. IV site checked: no pain, redness, or swelling. IV flushed thoroughly. --15:31 Kylie Wood R.N. DISPOSITION / DISCHARGE 15:00. Condition at departure: improved. No learning barriers present. Discharge instructions provided and reviewed with the patient. Patient verbalized understanding. Written instructions provided in Japanese. The patient was discharged home. She left the Emergency Department ambulatory and via (calling [employer]). Medication list reviewed and validated. --15:28 Kylie Wood R.N. 15:00 01/02/17. BP: 119/74. HR: 80. RR: 16. O2 saturation: 100% on room air. Temp: deferred. 14:04 01/02/17. BP: 126/78. HR: 78. RR: 20. O2 saturation: 99% on room air. 13:01/02/17. BP: 145/70. HR: 79. RR: 18. O2 saturation: 97%. Pain level now: 01/04. 12:01/02/17. BP: 147/72. HR: 78. RR: 20. O2 saturation: 98%. Temp: deferred. Pain level now: 12/04. 10:41 01/02/17. BP: 146/92. HR: 72. RR: 18. O2 saturation: 100%. Temp: 97.4 F. Pain level now: 03/06. --15:28 Kylie Wood R.N. Locked/Released at 01/02/2017 15:34 by Kylie Wood R.N.
--- NOTE | 2017-01-02 14:37 | ED CLINICAL REPORT ---
Clinical Report - Physicians/Mid Levels [facility] [address] [place] [address] 01/02/2017 10:32 Patient: SANDRA CARUSO Time Seen: 10:50 Jan 02 2017. Arrived- By ambulance. Historian- patient and EMS personnel (Called by [facility] practioner who reports that he is sending a patient with abdominal pain and vomiting by ambulance to the ER. That he spoke with GI and they note she has a cyclic vomiting and IBS history. Fluids, zofran and toradol were tried with no effect.). CPT: ER phys charges level 4 (#[id number]). HISTORY OF PRESENT ILLNESS Chief Complaint: VOMITING. This started today and is still present. The patient has had nausea, vomiting and abdominal pain. The illness is described as moderate. Similar symptoms previously: Several times, as bad. Seen in ED. Diagnosis: (Cyclic vomiting). Recent medical care: The patient was seen recently at another facility in a clinic (today). Diagnosis: (vomiting). REVIEW OF SYSTEMS No fever, difficulty with urination, dark urine, headache or dizziness. No sore throat, cough, chest pain, difficulty breathing or excessive urination. No skin rash or jaundice. All systems otherwise negative, except as recorded above. PAST HISTORY cyclical vomiting has seen a sas architect and confirmed cyclic vomiting. IBS Hypokalemia. Vomiting. . Abdominal Pain. UTI - Urinary Tract Infection. Hypertension. LNMP - Last Normal Menstrual Period. Gastroenteritis. Anxiety Reaction. Additional Surgeries: Cholecystectomy. SOCIAL HISTORY Occasional alcohol use. History of drug use: marijuana. ADDITIONAL NOTES The nursing notes have been reviewed. PHYSICAL EXAM Vital Signs: 01/02/2017 10:41 BP: 146/92. HR: 72. RR: 18. O2 saturation: 100%. Temp: 97.4 F. Pain level now: 8/10. Appearance: Alert. Anxious. Patient in moderate distress. Eyes: Pupils equal, round and reactive to light. Eyes normal inspection. ENT: Ears normal. Nose normal. Dry mucous membranes present. Pharynx normal. Neck: Normal inspection. Neck supple. CVS: Normal heart rate and rhythm. Heart sounds normal. Pulses normal. Respiratory: No respiratory distress. Breath sounds normal. Abdomen: Soft. Mild tenderness in the periumbilical area. Bowel sounds normal. Back: Normal inspection. No CVA tenderness. Skin: Skin warm. Normal skin color. No rash. Extremities: Extremities exhibit normal ROM. No lower extremity edema. Neuro: Oriented X 3. No motor deficit. No sensory deficit. Reflexes normal. LABS, X-RAYS, AND EKG Laboratory Tests: CMP: (NOE: 01/02/2017 11:45) ( MsgRcvd 01/02/2017 12:35) Final results Test Result Flag Units (Reference) LIPASE 83 U/L (73-393) AMYLASE 27 U/L (25-115) GLUCOSE 136 H mg/dL (70-110) BUN 17 mg/dL (7-18) CREATININE 0.9 mg/dL (0.6-1.3) Estimated GFR >60 mL/min Estimated GFR- >60 mL/min Note: Persistent reduction over 3 months in eGFR<60 mL/min/1.73 m2 defines CKD. Patients with eGFR values>=60 mL/min/1.73 m2 may also have CKD if evidence ofpersistent proteinuria. Additional information may be foundat www.kidney.org. SODIUM 140 mmol/L (136-145) POTASSIUM 3.6 mmol/L (3.5-5.1) CHLORIDE 107 mmol/L (98-107) CARBON DIOXIDE 20 L mmol/L (21-32) CALCIUM 7.5 L mg/dL (8.5-10.1) TOTAL PROTEIN 6.7 g/dL (6.4-8.2) ALBUMIN 3.5 g/dL (3.3-5.0) BILIRUBIN, TOTAL 0.7 mg/dL (0.0-1.0) ALKALINE PHOSPHATASE 80 U/L (46-116) AST (SGOT) 22 U/L (15-37) ALT (SGPT) 40 U/L (12-78) . PROGRESS AND PROCEDURES Course of Care: CBC at walk-in showed a WBC of 12. CBC not repeated here. 13:54 01/02/17. IV NS Phenergan 12.5 mg IV Ativan 1 mg IV. Patient still complained of pain nausea and vomiting. Benadryl 25 mg IV, Dilaudid 0.5 mg IV, Haldol 3 mg IV. 14:17 01/02/17. Sleeping and in no distress. No emesis. Pt does not have focal tenderness at this time. Patient/family counseled. Disposition: Discharged. Condition: stable and improved. CLINICAL IMPRESSION Cyclic vomiting syndrome. INSTRUCTIONS Take clear liquids only (frequent sips) for the next 12 hours until better. Advance diet as tolerated. Warnings: Further evaluation is necessary. SEDATIVE MEDICATION: You were given sedative medication during your visit. Do not drive or operate dangerous machinery. GENERAL WARNINGS: Return or contact your physician immediately if your condition worsens or changes unexpectedly, if not improving as expected, or if other problems arise. Your Current Medications: CONTINUE TAKING THE FOLLOWING MEDICATIONS: Omeprazole Oral. Promethazine HCl Oral. Promethazine HCl Rectal : Suppository 25 mg, 1 suppository, prn. SUMAtriptan Succinate Oral : 100mg, prn, mr x 2. Wellbutrin Oral : 150 mg 3x a day. Zofran Oral : 4 mg PRN. Follow-up: Follow up with a sas architect Friday in four days. Call for an appointment. Understanding of the discharge instructions verbalized by patient. (Electronically signed by Doug Morse MD 01/02/2017 21:46)
--- NOTE | 2017-01-02 14:37 | ED ORDER SUMMARY ---
..... Patient: SANDRA CARUSO OrderSheet [facility] VisitID: [id number] [address] [place] [address] 36y, F Registration Date/Time: 01/02/2017 ORDER SHEET Weight: 63.5 kg (stated) Allergies: No Known Drug Allergy GENERAL ORDERS: CMP Urgent (01/02/2017 Joesph WITT) (Ack 11:36 Keshav) (12:08 SRoberts R.N.) Amylase Urgent (01/02/2017 Joesph WITT) (Ack 11:36 Keshav) (12:08 Jered R.N.) Lipase Urgent (01/02/2017 Joesph WITT) (Ack 11:36 Keshav) (12:08 Hannahts R.N.) Urine Urgent (01/02/2017 Joesph WITT) (Ack 11:36 Keshav) (Cancelled: Physician Order15:30 Hannahts R.N.) Urine Drug Screen Urgent (01/02/2017 Joesph WITT) (Ack 11:36 Ksehav) (Cancelled: Physician Order15:30 oberts R.N.) UA-Culture if indicated Urgent (01/02/2017 Joesph WITT) (Ack 11:36 Keshav) (Cancelled: Physician Order15:30 oberts R.N.) MEDICATION ORDERS: Phenergan IV 12.5 mg (NOW) (01/02/2017 Joesph WITT) (Ack 12:08 Hannahts R.N.) (12:36 oberts R.N.) IV FLUIDS: IV NS : initial bolus 1000 mL (1000 mL/hr), then 250 mL/hr for 4h (NOW); Routine (01/02/2017 Joesph WITT) (Ack 12:08 oberts R.N.) (12:33 SRoberts R.N.) Ativan IV 1 mg (NOW) (01/02/2017 Joesph WITT) (Ack 12:08 SRoberts R.N.) (12:36 SRoberts R.N.) Dilaudid IV 0.5 mg (NOW) (13:00 01/02/2017 Joesph WITT) (Ack 13:08 SRoberts R.N.) (15:32 SRoberts R.N.) Benadryl IV 25 mg (NOW) (13:01/02/2017 Joesph WITT) (Ack 13:08 oberparish R.N.) (15:33 SRoberts R.N.) Haldol IV 3 mg (NOW) (13:00 01/02/2017 Joesph WITT) (Ack 13:08 SRoberts R.N.) (15:34 SRoberts R.N.) ORDER SHEET NOTES: [Electronically signed by Kylie Wood R.N. (15:34 01/02/2017)] [Electronically signed by Doug Morse MD (21:46 01/02/2017)] [Electronically locked/signed by Kylie Wood R.N. (15:34 01/02/2017)]
--- NOTE | 2017-01-02 14:37 | ED CLINICAL REPORT ---
Clinical Report - Physicians/Mid Levels [facility] [address] [place] [address] 01/02/2017 10:32 Patient: SANDRA CARUSO Time Seen: 10:50 Jan 02 2017. Arrived- By ambulance. Historian- patient and EMS personnel (Called by [facility] practioner who reports that he is sending a patient with abdominal pain and vomiting by ambulance to the ER. That he spoke with GI and they note she has a cyclic vomiting and IBS history. Fluids, zofran and toradol were tried with no effect.). CPT: ER phys charges level 4 (#[id number]). HISTORY OF PRESENT ILLNESS Chief Complaint: VOMITING. This started today and is still present. The patient has had nausea, vomiting and abdominal pain. The illness is described as moderate. Similar symptoms previously: Several times, as bad. Seen in ED. Diagnosis: (Cyclic vomiting). Recent medical care: The patient was seen recently at another facility in a clinic (today). Diagnosis: (vomiting). REVIEW OF SYSTEMS No fever, difficulty with urination, dark urine, headache or dizziness. No sore throat, cough, chest pain, difficulty breathing or excessive urination. No skin rash or jaundice. All systems otherwise negative, except as recorded above. PAST HISTORY cyclical vomiting has seen a astronomy teacher and confirmed cyclic vomiting. IBS Hypokalemia. Vomiting. . Abdominal Pain. UTI - Urinary Tract Infection. Hypertension. LNMP - Last Normal Menstrual Period. Gastroenteritis. Anxiety Reaction. Additional Surgeries: Cholecystectomy. SOCIAL HISTORY Occasional alcohol use. History of drug use: marijuana. ADDITIONAL NOTES The nursing notes have been reviewed. PHYSICAL EXAM Vital Signs: 01/02/2017 10:41 BP: 146/92. HR: 72. RR: 18. O2 saturation: 100%. Temp: 97.4 F. Pain level now: 8/10. Appearance: Alert. Anxious. Patient in moderate distress. Eyes: Pupils equal, round and reactive to light. Eyes normal inspection. ENT: Ears normal. Nose normal. Dry mucous membranes present. Pharynx normal. Neck: Normal inspection. Neck supple. CVS: Normal heart rate and rhythm. Heart sounds normal. Pulses normal. Respiratory: No respiratory distress. Breath sounds normal. Abdomen: Soft. Mild tenderness in the periumbilical area. Bowel sounds normal. Back: Normal inspection. No CVA tenderness. Skin: Skin warm. Normal skin color. No rash. Extremities: Extremities exhibit normal ROM. No lower extremity edema. Neuro: Oriented X 3. No motor deficit. No sensory deficit. Reflexes normal. LABS, X-RAYS, AND EKG Laboratory Tests: CMP: (NOE: 01/02/2017 11:45) ( MsgRcvd 01/02/2017 12:35) Final results Test Result Flag Units (Reference) LIPASE 83 U/L (73-393) AMYLASE 27 U/L (25-115) GLUCOSE 136 H mg/dL (70-110) BUN 17 mg/dL (7-18) CREATININE 0.9 mg/dL (0.6-1.3) Estimated GFR >60 mL/min Estimated GFR- >60 mL/min Note: Persistent reduction over 3 months in eGFR<60 mL/min/1.73 m2 defines CKD. Patients with eGFR values>=60 mL/min/1.73 m2 may also have CKD if evidence ofpersistent proteinuria. Additional information may be foundat www.kidney.org. SODIUM 140 mmol/L (136-145) POTASSIUM 3.6 mmol/L (3.5-5.1) CHLORIDE 107 mmol/L (98-107) CARBON DIOXIDE 20 L mmol/L (21-32) CALCIUM 7.5 L mg/dL (8.5-10.1) TOTAL PROTEIN 6.7 g/dL (6.4-8.2) ALBUMIN 3.5 g/dL (3.3-5.0) BILIRUBIN, TOTAL 0.7 mg/dL (0.0-1.0) ALKALINE PHOSPHATASE 80 U/L (46-116) AST (SGOT) 22 U/L (15-37) ALT (SGPT) 40 U/L (12-78) . PROGRESS AND PROCEDURES Course of Care: CBC at walk-in showed a WBC of 12. CBC not repeated here. 13:54 01/02/17. IV NS Phenergan 12.5 mg IV Ativan 1 mg IV. Patient still complained of pain nausea and vomiting. Benadryl 25 mg IV, Dilaudid 0.5 mg IV, Haldol 3 mg IV. 14:17 01/02/17. Sleeping and in no distress. No emesis. Pt does not have focal tenderness at this time. Patient/family counseled. Disposition: Discharged. Condition: stable and improved. CLINICAL IMPRESSION Cyclic vomiting syndrome. INSTRUCTIONS Take clear liquids only (frequent sips) for the next 12 hours until better. Advance diet as tolerated. Warnings: Further evaluation is necessary. SEDATIVE MEDICATION: You were given sedative medication during your visit. Do not drive or operate dangerous machinery. GENERAL WARNINGS: Return or contact your physician immediately if your condition worsens or changes unexpectedly, if not improving as expected, or if other problems arise. Your Current Medications: CONTINUE TAKING THE FOLLOWING MEDICATIONS: Omeprazole Oral. Promethazine HCl Oral. Promethazine HCl Rectal : Suppository 25 mg, 1 suppository, prn. SUMAtriptan Succinate Oral : 100mg, prn, mr x 2. Wellbutrin Oral : 150 mg 3x a day. Zofran Oral : 4 mg PRN. Follow-up: Follow up with a astronomy teacher Friday in four days. Call for an appointment. Understanding of the discharge instructions verbalized by patient. (Electronically signed by Doug Morse MD 01/02/2017 21:46)
--- NOTE | 2017-01-02 14:37 | ED NURSING NOTES ---
Clinical Report - Nurses [facility] [address] [place] [address] 01/02/2017 10:32 Patient: SANDRA CARUSO TRIAGE Triage time 10:41. Acuity: LEVEL 3. Chief Complaint: ABDOMINAL PAIN and NAUSEA. Alert. --10:50 Kylie Wood R.N. 10:41 01/02/17. BP: 146/92. HR: 72. RR: 18. O2 saturation: 100%. Temp: 97.4 F. Pain level now: 03/06. --10:50 Kylie Wood R.N. Weight: 63.5 kg stated. Height/Length: 65 inches Per Patient. BMI: 23.3. --10:47 Kylie Wood R.N. Medications Omeprazole Oral. Promethazine HCl Oral. Wellbutrin Oral 150 mg, 3x a day. Zofran Oral 4 mg, PRN. --10:44 yKlie Wood R.N. Promethazine HCl Rectal (Suppository 25 mg) 1 suppository, as needed. --10:45 Kylie Wood R.N. SUMAtriptan Succinate Oral 100mg , as needed (mr x 2 ). --10:45 Kylie Wood R.N. Medication/allergy information source: the patient. --10:50 Kylie Wood R.N. Allergies No Known Drug Allergy. --10:44 Kylie Wood R.N. History Arrived by EMS. Historian: patient. Primary physician (Zhang). This started today. She has had vomiting. The vomiting has occurred several times and constant abdominal pain. The pain is described as located in the upper abdomen, epigastrium and lower abdomen. She has had diarrhea (1 days). 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 See info). PAST MEDICAL HX: Immunizations: up-to-date. Last normal menstrual period was 1 week ago. SOCIAL HX: Smoker- current status unknown. Occasional alcohol use. History of drug use: marijuana. Recently used drugs yesterday. No recent travel. No known contact with a sick individual. ABUSE ASSESSMENT: No report of abuse. FALL RISK ASSESSMENT: Fall risk assessment completed. No fall risk identified. NUTRITIONAL RISK ASSESSMENT: The nutritional risk assessment revealed no deficiencies. FUNCTIONAL ASSESSMENT: Functional assessment: no impairments noted. LEARNING NEEDS ASSESSMENT: The learning needs assessment revealed no barriers. SKIN INTEGRITY ASSESSMENT: Skin integrity risk assessment completed. No skin integrity risk identified. --10:50 Kylie Wood R.N. PROBLEMS: Cyclic vomiting syndrom x 15 yrs. Hypokalemia. Vomiting. Abdominal Pain. UTI - Urinary Tract Infection. Hypertension. Gastroenteritis. Anxiety Reaction. --10:47 Kylie Wood R.N. ADDITIONAL SURGERIES: Cholecystectomy. --10:47 Kylie Wood R.N. Interventions ID band on patient. To room. --10:50 Kylie Wood R.N. PHYSICAL ASSESSMENT To room via stretcher. Patient gowned. GENERAL / NEURO / PSYCH: Alert. Oriented X 4. Appears in pain and anxious. HEENT: Mucous membranes are pink. RESPIRATORY: Respirations not labored. CVS: Capillary refill less than 2 seconds. GI / : The patient has diarrhea. This has occurred several times. Abdominal tenderness in the upper and lower abdomen and epigastric area. SKIN: Skin is warm and dry. --10:51 Kylie Wood R.N. NURSING PROGRESS NOTES Patient gowned. Head of bed elevated. Two patient identifiers checked. Call light placed in reach. Side rails up x 2. Bed placed in lowest position. Brakes of bed on. Patient ready for evaluation. --10:51 Kylie Wood R.N. 10:45 01/02/2017 Started bag #1 1000 mL IV Fluids IV NS (Saline); at 1000 mL/hr over 1 hour(s) via site #1 via IV pump. Allergies verified and confirmed 5 rights. IV patency established. IV site checked: no pain, redness, or swelling. IV flushed thoroughly pre- and post-medication administration. --12:37 Kylie Wood R.N. 11:00 01/02/2017 Site #1 started prior to arrival in doctor's office via IV in the left antecubital space with an 20g angiocath, with aseptic technique and good blood return; one attempt. Saline lock flushed with 10 mL saline. --12:33 Kylie Wood R.N. 12:23 01/02/2017 IV Fluids IV NS Bag Change: bag #1 infused. Total amount infused: 1000. STARTED bag #2 (1000 mL) at 250 mL/hr via IV pump. Confirmed 5 rights. IV patency established. IV site checked: no pain, redness, or swelling. IV flushed thoroughly. --12:38 Kylie Wood R.N. 12:01/02/2017 PHENERGAN (Promethazine HCl) IVP 12.5 mg given over 1 minute(s) via site #1. Allergies verified and confirmed 5 rights. IV patency established. IV site checked: no pain, redness, or swelling. IV flushed thoroughly pre- and post-medication administration. IVP given by RN. --12:36 Kylie Wood R.N. 12:01/02/2017 Ativan (LORazepam) IVP 1 mg given over 1 minute(s) via site #1. Allergies verified, confirmed 5 rights and sedative warning given to the patient. IV patency established. IV site checked: no pain, redness, or swelling. IV flushed thoroughly pre- and post-medication administration. IVP given by RN. --12:36 Kylie Wood R.N. 12:01/02/2017 Started bag #2 250 mL IV Fluids IV NS (Saline); at 250 mL/hr via site #1 via IV pump. Allergies verified and confirmed 5 rights. IV patency established. IV site checked: no pain, redness, or swelling. IV flushed thoroughly pre- and post-medication administration. --12:33 Kylie Wood R.N. 13:01/02/17. BP: 145/70. HR: 79. RR: 18. O2 saturation: 97%. Pain level now: 01/04. --13:32 Kylie Wood R.N. 13:01/02/2017 Dilaudid (HYDROmorphone HCl PF) IVP 1 mg given over 1 minute(s) via site #1. Sedative warning given to the patient. IV patency established. IV site checked: no pain, redness, or swelling. IV flushed thoroughly pre- and post-medication administration. IVP given by RN. --15:32 Kylie Wood R.N. 13:10 01/02/2017 Benadryl (DiphenhydrAMINE HCl) IVP 25 mg given. via site #1. Allergies verified, confirmed 5 rights and sedative warning given to the patient. IV patency established. IV site checked: no pain, redness, or swelling. IV flushed thoroughly pre- and post-medication administration. IVP given by RN. --15:33 Kylie Wood R.N. 13:12 01/02/2017 HALDOL (Haloperidol Lactate) IVP 3 mg given over 1 minute(s) via site #1. Allergies verified, confirmed 5 rights and sedative warning given to the patient. IV patency established. IV site checked: no pain, redness, or swelling. IV flushed thoroughly pre- and post-medication administration. IVP given by RN. --15:34 Kylie Wood R.N. 14:17 01/02/17. ( Asleep, resting comfortably. sat 96% ra, hr 65.). --14:17 Kylie Wood R.N. 15:00 01/02/2017 Site #1 removed upon discharge. Catheter intact. Bandaid applied. --15:31 Kylie Wood R.N. 15:00 01/02/2017 IV Fluids IV NS Discontinued: bag #2 STOPPED upon discharge. Total amount infused: 600 mL. IV patency established. IV site checked: no pain, redness, or swelling. IV flushed thoroughly. --15:31 Kylie Wood R.N. DISPOSITION / DISCHARGE 15:00. Condition at departure: improved. No learning barriers present. Discharge instructions provided and reviewed with the patient. Patient verbalized understanding. Written instructions provided in Turkmen. The patient was discharged home. She left the Emergency Department ambulatory and via (calling [facility]). Medication list reviewed and validated. --15:28 Kylie Wood R.N. 15:00 01/02/17. BP: 119/74. HR: 80. RR: 16. O2 saturation: 100% on room air. Temp: deferred. 14:04 01/02/17. BP: 126/78. HR: 78. RR: 20. O2 saturation: 99% on room air. 13:01/02/17. BP: 145/70. HR: 79. RR: 18. O2 saturation: 97%. Pain level now: 01/04. 12:01/02/17. BP: 147/72. HR: 78. RR: 20. O2 saturation: 98%. Temp: deferred. Pain level now: 12/04. 10:41 01/02/17. BP: 146/92. HR: 72. RR: 18. O2 saturation: 100%. Temp: 97.4 F. Pain level now: 03/06. --15:28 Kylie Wood R.N. Locked/Released at 01/02/2017 15:34 by Kylie Wood R.N.
--- NOTE | 2017-01-02 21:47 | ED MAR SUMMARY ---
..... Medication Administration Record [facility] [address] [place] [address] Patient: SANDRA CARUSO Visit ID: [id number] 36y, F Weight: 63.5 kg Height/Length: 65 in BMI: 23.3 ALLERGIES: No Known Drug Allergy Start 10:45 01/02/2017 Kylie Wood R.N. Medication Administered: IV NS (SALINE), Dose: IV Fluids over 1 hour(s), Rate: 1000 mL/hr, Dispensed: 1000 mL bag, Site: #1. Medication Ordered: IV NS : initial bolus 1000 mL (1000 mL/hr), then 250 mL/hr for 4h (NOW); Routine. Given 12:01/02/2017 Kylie Wood R.N. Medication Administered: ATIVAN [IVP] (LORAZEPAM), Dose: 1 mg IVP over 1 minute(s), Site: #1 left AC. Medication Ordered: Ativan IV 1 mg (NOW). Given 12:01/02/2017 Kylie Wood R.N. Medication Administered: PHENERGAN [IVP] (PROMETHAZINE HCL), Dose: 12.5 mg IVP over 1 minute(s), Site: #1 left AC. Medication Ordered: Phenergan IV 12.5 mg (NOW). Start 12:33 01/02/2017 Kylie Wood R.N., Stop 15:00 01/02/2017 Kylie Wood R.N. Medication Administered: IV NS (SALINE), Dose: IV Fluids, Rate: 250 mL/hr, Dispensed: 250 mL bag, Site: #1 left AC. Medication Ordered: IV NS : initial bolus 1000 mL (1000 mL/hr), then 250 mL/hr for 4h (NOW); Routine. Given 13:01/02/2017 Kylie Wood R.N. Medication Administered: DILAUDID [IVP] (HYDROMORPHONE HCL PF), Dose: 1 mg IVP over 1 minute(s), Site: #1 left AC. Medication Ordered: Dilaudid IV 0.5 mg (NOW). Given 13:01/02/2017 Kylie Wood R.N. Medication Administered: BENADRYL [IVP] (DIPHENHYDRAMINE HCL), Dose: 25 mg IVP, Site: #1 left AC. Medication Ordered: Benadryl IV 25 mg (NOW). Given 13:12 01/02/2017 Kylie Wood R.N. Medication Administered: HALDOL [IVP] (HALOPERIDOL LACTATE), Dose: 3 mg IVP over 1 minute(s), Site: #1 left AC. Medication Ordered: Haldol IV 3 mg (NOW).
--- NOTE | 2017-01-02 21:47 | ED MAR SUMMARY ---
..... Medication Administration Record [facility] [address] [place] [address] Patient: SANDRA CARUSO Visit ID: [id number] 36y, F Weight: 63.5 kg Height/Length: 65 in BMI: 23.3 ALLERGIES: No Known Drug Allergy Start 10:45 01/02/2017 Kylie Wood R.N. Medication Administered: IV NS (SALINE), Dose: IV Fluids over 1 hour(s), Rate: 1000 mL/hr, Dispensed: 1000 mL bag, Site: #1. Medication Ordered: IV NS : initial bolus 1000 mL (1000 mL/hr), then 250 mL/hr for 4h (NOW); Routine. Given 12:01/02/2017 Kylie Wood R.N. Medication Administered: ATIVAN [IVP] (LORAZEPAM), Dose: 1 mg IVP over 1 minute(s), Site: #1 left AC. Medication Ordered: Ativan IV 1 mg (NOW). Given 12:01/02/2017 Kylie Wood R.N. Medication Administered: PHENERGAN [IVP] (PROMETHAZINE HCL), Dose: 12.5 mg IVP over 1 minute(s), Site: #1 left AC. Medication Ordered: Phenergan IV 12.5 mg (NOW). Start 12:33 01/02/2017 Kylie Wood R.N., Stop 15:00 01/02/2017 Kylie Wood R.N. Medication Administered: IV NS (SALINE), Dose: IV Fluids, Rate: 250 mL/hr, Dispensed: 250 mL bag, Site: #1 left AC. Medication Ordered: IV NS : initial bolus 1000 mL (1000 mL/hr), then 250 mL/hr for 4h (NOW); Routine. Given 13:01/02/2017 Kylie Wood R.N. Medication Administered: DILAUDID [IVP] (HYDROMORPHONE HCL PF), Dose: 1 mg IVP over 1 minute(s), Site: #1 left AC. Medication Ordered: Dilaudid IV 0.5 mg (NOW). Given 13:01/02/2017 Kylie Wood R.N. Medication Administered: BENADRYL [IVP] (DIPHENHYDRAMINE HCL), Dose: 25 mg IVP, Site: #1 left AC. Medication Ordered: Benadryl IV 25 mg (NOW). Given 13:12 01/02/2017 Kylie Wood R.N. Medication Administered: HALDOL [IVP] (HALOPERIDOL LACTATE), Dose: 3 mg IVP over 1 minute(s), Site: #1 left AC. Medication Ordered: Haldol IV 3 mg (NOW).
--- NOTE | 2017-01-02 21:47 | ED DISCHARGE INSTRUCTIONS ---
Patient: SANDRA CARUSO General Instructions [facility] VisitID: [id number] [place] [address] 36y, F Registration Date/Time: 01/02/2017 Cyclic vomiting syndrome. INSTRUCTIONS Take clear liquids only (frequent sips) for the next 12 hours until better. Advance diet as tolerated. Warnings: Further evaluation is necessary. SEDATIVE MEDICATION: You were given sedative medication during your visit. Do not drive or operate dangerous machinery. GENERAL WARNINGS: Return or contact your physician immediately if your condition worsens or changes unexpectedly, if not improving as expected, or if other problems arise. Your Current Medications: CONTINUE TAKING THE FOLLOWING MEDICATIONS: Omeprazole Oral. Promethazine HCl Oral. Promethazine HCl Rectal : Suppository 25 mg, 1 suppository, prn. SUMAtriptan Succinate Oral : 100mg, prn, mr x 2. Wellbutrin Oral : 150 mg 3x a day. Zofran Oral : 4 mg PRN. Follow-up: Follow up with a production posting clerk Friday in four days. Call for an appointment. Understanding of the discharge instructions verbalized by patient. ADDITIONAL INFORMATION Clear Liquid Diet Clear liquids are any liquid that you can see through as well as those that are very easy to digest. This is used while the body is recovering from irritation or infection of the stomach or intestinal tract. It may also be used before special procedures or surgery. This diet is to be used no more than three days. You may include the following items. Adults Adults should drink a total of 23 quarts of liquid per day. It may be easier to drink small frequent servings rather than a few large ones. Liquids can include: Fruit juices.Strained orange juice or lemonade (no pulp), apple, grape and cranberry juice, clear fruit drinks, sports drinks Beverages.Sport drinks, sodas, mineral water (plain or flavored), tea, black coffee, liquid gelatin (add twice the recommended amount of water) Soups.Clear broth, consomm, bouillon Desserts.Plain gelatin, popsicles, fruit juice bars Children Over 2 years old The following liquids are acceptable for children over age 2: Fruit juices.Strained orange juice or lemonade (no pulp), apple, grape and cranberry juice, clear fruit drinks Beverages. Sports drinks, sodas, mineral water (plain or flavored), tea, liquid gelatin (add twice the recommended amount of water) Soups. Clear broth, consomm, bouillon Desserts. Plain gelatin, popsicles, fruit juice bars Children under 2 years old Oral rehydration fluids such are available at drug stores and most grocery stores without a prescription. You have been given the following additional information: Diet, Clear Liquid (Electronically signed by Doug Morse MD 01/02/2017 21:46)
--- NOTE | 2017-01-02 21:47 | ED MED RECONCILIATION SUMMARY ---
Patient: SANDRA CARUSO Medication Reconciliation Report [facility] VisitID: [id number] [address] [place] [address] 36y, F Registration Date/Time: 01/02/2017 Weight: 63.5 kg Height/Length: 65 in. BMI: 23.3 ALLERGIES: No Known Drug Allergy The patient's Home Medications are listed below: CONTINUE TAKING THE FOLLOWING MEDICATIONS: Omeprazole Oral Promethazine HCl Oral Promethazine HCl Rectal (25 mg) 1 suppository SUMAtriptan Succinate Oral 100mg , mr x 2 Wellbutrin Oral 150 mg, 3x a day Zofran Oral 4 mg, PRN The source(s) of the original Home Medication information: patient The following Medications were given to the patient in the Emergency Department: IV NS IV Fluids bolus 0, then 250 mL/hr, administered: 01/02/2017 12:33:00 PM PHENERGAN [IVP] IVP 12.5 mg, administered: 01/02/2017 12:26:00 PM Ativan [IVP] IVP 1 mg, administered: 01/02/2017 12:26:00 PM IV NS IV Fluids bolus 0, then 1000 mL/hr, administered: 01/02/2017 10:45:00 AM Dilaudid [IVP] IVP 1 mg, administered: 01/02/2017 1:10:00 PM Benadryl [IVP] IVP 25 mg, administered: 01/02/2017 1:10:00 PM HALDOL [IVP] IVP 3 mg, administered: 01/02/2017 1:12:00 PM The following Medications were prescribed to the patient: None.
--- NOTE | 2017-01-02 21:47 | ED DISCHARGE INSTRUCTIONS ---
Patient: SANDRA CARUSO General Instructions [facility] VisitID: [id number] [place] [address] 36y, F Registration Date/Time: 01/02/2017 Cyclic vomiting syndrome. INSTRUCTIONS Take clear liquids only (frequent sips) for the next 12 hours until better. Advance diet as tolerated. Warnings: Further evaluation is necessary. SEDATIVE MEDICATION: You were given sedative medication during your visit. Do not drive or operate dangerous machinery. GENERAL WARNINGS: Return or contact your physician immediately if your condition worsens or changes unexpectedly, if not improving as expected, or if other problems arise. Your Current Medications: CONTINUE TAKING THE FOLLOWING MEDICATIONS: Omeprazole Oral. Promethazine HCl Oral. Promethazine HCl Rectal : Suppository 25 mg, 1 suppository, prn. SUMAtriptan Succinate Oral : 100mg, prn, mr x 2. Wellbutrin Oral : 150 mg 3x a day. Zofran Oral : 4 mg PRN. Follow-up: Follow up with a altitude chamber technician Friday in four days. Call for an appointment. Understanding of the discharge instructions verbalized by patient. ADDITIONAL INFORMATION Clear Liquid Diet Clear liquids are any liquid that you can see through as well as those that are very easy to digest. This is used while the body is recovering from irritation or infection of the stomach or intestinal tract. It may also be used before special procedures or surgery. This diet is to be used no more than three days. You may include the following items. Adults Adults should drink a total of 23 quarts of liquid per day. It may be easier to drink small frequent servings rather than a few large ones. Liquids can include: Fruit juices.Strained orange juice or lemonade (no pulp), apple, grape and cranberry juice, clear fruit drinks, sports drinks Beverages.Sport drinks, sodas, mineral water (plain or flavored), tea, black coffee, liquid gelatin (add twice the recommended amount of water) Soups.Clear broth, consomm, bouillon Desserts.Plain gelatin, popsicles, fruit juice bars Children Over 2 years old The following liquids are acceptable for children over age 2: Fruit juices.Strained orange juice or lemonade (no pulp), apple, grape and cranberry juice, clear fruit drinks Beverages. Sports drinks, sodas, mineral water (plain or flavored), tea, liquid gelatin (add twice the recommended amount of water) Soups. Clear broth, consomm, bouillon Desserts. Plain gelatin, popsicles, fruit juice bars Children under 2 years old Oral rehydration fluids such are available at drug stores and most grocery stores without a prescription. You have been given the following additional information: Diet, Clear Liquid (Electronically signed by Doug Morse MD 01/02/2017 21:46)
--- NOTE | 2017-01-02 21:47 | ED MED RECONCILIATION SUMMARY ---
Patient: SANDRA CARUSO Medication Reconciliation Report [facility] VisitID: [id number] [address] [place] [address] 36y, F Registration Date/Time: 01/02/2017 Weight: 63.5 kg Height/Length: 65 in. BMI: 23.3 ALLERGIES: No Known Drug Allergy The patient's Home Medications are listed below: CONTINUE TAKING THE FOLLOWING MEDICATIONS: Omeprazole Oral Promethazine HCl Oral Promethazine HCl Rectal (25 mg) 1 suppository SUMAtriptan Succinate Oral 100mg , mr x 2 Wellbutrin Oral 150 mg, 3x a day Zofran Oral 4 mg, PRN The source(s) of the original Home Medication information: patient The following Medications were given to the patient in the Emergency Department: IV NS IV Fluids bolus 0, then 250 mL/hr, administered: 01/02/2017 12:33:00 PM PHENERGAN [IVP] IVP 12.5 mg, administered: 01/02/2017 12:26:00 PM Ativan [IVP] IVP 1 mg, administered: 01/02/2017 12:26:00 PM IV NS IV Fluids bolus 0, then 1000 mL/hr, administered: 01/02/2017 10:45:00 AM Dilaudid [IVP] IVP 1 mg, administered: 01/02/2017 1:10:00 PM Benadryl [IVP] IVP 25 mg, administered: 01/02/2017 1:10:00 PM HALDOL [IVP] IVP 3 mg, administered: 01/02/2017 1:12:00 PM The following Medications were prescribed to the patient: None.
== END 2017-01-02 15:00 | disposition home or self-care (01) ==
LOC: ED SRH 10:30
DX: G43.A0 Cyclical vomiting, in migraine, not intractable (principal); I10 Essential (primary) hypertension; Z79.899 Other long term (current) drug therapy
CPT/HCPCS: 90074; 90100; 92235; 92530